=== PATIENT | female | born 1980 | race Caucasian/White ===

== ENCOUNTER 2020-11-05 23:27 | Inpatient (IN) | payer OTHER ==
[~2020-11-05] VITALS: Ht 167.6 cm; Wt 70.2 kg
[~2020-11-05 23:27] MED LIST: ALBU3IS INH; ALBU4; ALBU90OI61 INH; AMOX500 PO; AZIT500 PO; Accuneb1.25 MG/3 INH; CETI5 PO; DELTASONE20 MG PO; DULERA 100 MCG/13 GM INH; DULERA 200 MCG/13 GM INH; GUAI600T33 PO; Keflex500 MG PO; LEVO750 PO; METPRE4DP PO; MUCOSA DM TABL1 EACH PO; PRED20 PO; PROM25 PO; Percocet 5-3251 EACH PO; Ventolin Soln3 ML; Zithromax250 MG PO; Zofran Odt4 MG SL
[2020-11-06 00:14] LABS: BASOPHILS ABSOLUTE AUTO 0.06 K/mm3 (0.00-0.23); BASOPHILS PERCENT AUTO 1 % (0-2); EOSINOPHILS ABSOLUTE AUTO 1.19 K/mm3 (0.00-0.68); EOSINOPHILS PERCENT AUTO 11 % (0-6); Hematocrit 39.4 % (33.0-51.0); Hemoglobin 13.4 g/dL (11.5-16.0); IMMATURE GRAN ABSOLUTE AUTO 0.03 K/mm3 (0.00-0.10); IMMATURE GRAN PERCENT AUTO 0 % (0-1); LYMPHOCYTES PERCENT AUTO 24 % (21-46); MONOCYTES PERCENT AUTO 8 % (4-13); Mean Corpuscular HGB 30.9 pg (26.0-34.0); Mean Corpuscular Volume 91 fL (80-100); NEUTROPHILS ABSOLUTE AUTO 5.97 K/mm3 (1.96-9.15); NEUTROPHILS PERCENT AUTO 55 % (41-73); Platelet Count 229 K/mm3 (150-400); RDW Coefficient Variation 12.1 % (11.7-14.2); RDW Standard Deviation 40.7 fL (35.1-46.3); Red Blood Cell Count 4.33 M/mm3 (3.80-5.20); White Blood Cell Count 10.75 K/mm3 (4.00-11.30)
[2020-11-06 00:17] LABS: PCO2 Arterial 57.3 mmHg (35-45); PO2 Arterial 153 mmHg (80-100)
[2020-11-06 00:20] LABS: pH Blood Arterial 7.27 (7.35-7.45)
[2020-11-06 00:39] LABS: Alanine Aminotransfer (ALT/SGP 21 U/L (12-78); Albumin, Blood 3.5 g/dL (3.4-5.0); Albumin/Globulin Ratio 0.9 (0.8-1.8); Alk Phos 77 U/L (50-136); Anion Gap 6 mmol/L (6-16); Aspartate Aminotrans (AST/SGOT 14 U/L (12-37); Bilirubin, Total 0.6 mg/dL (0.1-1.0); Blood Urea Nitrogen 13 mg/dL (8-24); Bun/Creatinine Ratio 15.5 (12.0-20.0); CO2, Blood 27 mmol/L (21-32); Calcium, Blood 8.3 mg/dL (8.5-10.1); Chloride, Blood 108 mmol/L (98-108); Creatinine, Blood 0.84 mg/dL (0.40-1.00); Globulin, Blood 3.9 g/dL (2.2-4.0); Glomerular Filtration Rate >60 (60-); Glucose, Blood 108 mg/dL (70-99); Potassium, Blood 4.3 mmol/L (3.5-5.5); Sodium, Blood 141 mmol/L (136-145); Total Protein, Blood 7.4 g/dL (6.4-8.2); Troponin I <0.015 ng/mL (0.000-0.040)
[2020-11-06 01:07] LABS: Influenza A, PCR NEGATIVE (NEGATIVE); Influenza B, PCR NEGATIVE (NEGATIVE); Resp Syncytial Virus, PCR NEGATIVE (NEGATIVE); SARS-Cov-2 (COVID-19) PCR, MMC NEGATIVE (NEGATIVE)
[2020-11-06 02:59] LABS: Source, Urine Catheter
[2020-11-06 03:01] LABS: Bilirubin, Urine Neg (Neg); Blood, Urine 1+ (Neg); Glucose Qualitative, Urine Neg (Neg); Ketones, Urine Neg (Neg); Leukocyte Esterase, Urine 1+ (Neg); Nitrite, Urine Pos (Neg); Protein, Urine 2+ (Neg); Urobilinogen, Urine NORM (Normal)
[2020-11-06 03:07] LABS: Appearance, Urine Turbid (Clear); Color, Urine Yellow (P-Yellow)
[2020-11-06 03:18] LABS: Amorphous Heavy (0-Heavy); Bacteria Mod /hpf; Red Blood Cells, Urine Rare /hpf (0-2); Squamous Epithelial Cells Rare /hpf (Few)
--- NOTE | 2020-11-06 03:59 | NUR ---
ED TO ICU 6, 0245 Pt arrived to ICU 6 via strecter accomplined by ED RN. Intubated and sedated. Propofol upon arrival at 40 mcg/kg/min, see flow sheet. Titreated up to 50 mcg/kg/min due to patient agitation, pulling on restraints, and attempting to remove tube. Versed drip at 5 mg/hr. AC 20/350/5/35%, SPO2 > 90%. Pt opens eyes during oral care and pulling on restraints. Unable to follow directions at this time. Pt has dirt under fingernails and toenails. Temp willingham in place, draining to gravity with cloudy yellow urine. SWB. OG tube in place.
--- NOTE | 2020-11-06 05:51 | NUR ---
Shift Summary Pt intubated and sedated. Vent settings unchanged. Propofol @ 50 mcg/kg/min. Pt with increased agitation during turns/care. Pulling on restraints and thrashing in bed, Propofol titerated, see flow sheet. Versed 5 mg/hr, placed in clam shell. Pt unable to follow commands but opens eyes during care. Temp willingham in place, yellow cloudy urine. SWB in place. VSS. NSR. Will report to oncoming shift.
--- NOTE | 2020-11-06 08:32 | NUR ---
ASSUMED CARE BEDSIDE REPORT FROM ARAVIND DUNN. PT INTUBATED AND SEDATED. VENT SETTINGS AC 20/350/5/35%. PROPOFOL GTT 50 MCG/KG/MIN, VERSED 5 MG/HR. PT RESPONSES TO PAINFUL STIMULI. WITHDRAWS FROM PAIN. GRIMACES c CARE. LUNGS c WHEEZING THROUGHOUT. COUGH/GAG REFLEX. ABD ROUND, SOFT, NON TENDER. BT X 4. OGT TO LIS. BROWN EMESIS OUT. MAEW. RONQUILLO PATENT, DRAINING TO GRAVITY. CLOUDY. VSS. WILL CONTINUE TO MONITOR.
--- NOTE | 2020-11-06 09:11 | NUR ---
SPOKE c AUNT, KRISTIN, ON PHONE. [phone]. STATES PT HAS BEEN HOMELESS. . HAS NOT BEEN SEEKING MEDICAL CARE. KRISTIN WOULD LIKE TO PROVIDE PT A PLACE TO STAY. CALLED ID FOR RECORDS, PT HAS NOT BEEN SEEN IN THAT FACILITY SINCE 2019. KRISTIN STATES PT HAS ONE INHALER.
[2020-11-06 13:41] LABS: U Amphetamine Screen DETECTED; U Barbituate Screen Not Detected; U Benzodiazapine Screen Not Detected; U Cocaine Screen Not Detected; U Methadone Screen Not Detected; U Methamphetamine Screen DETECTED; U Opiates Screen DETECTED
[2020-11-06 13:42] LABS: U Buprenorphine Screen Not Detected; U Cannabinoids Screen Not Detected; U Oxycodone Screen Not Detected; U Phencyclidine Screen Not Detected; U Propoxyphene Screen Not Detected
--- NOTE | 2020-11-06 17:01 | NUR ---
SHIFT SUMMARY PT REMAINS INTUBATED AND SEDATED. VENT SETTINGS UNCHANGED, AC 20/350/5/35%. PROPOFOL GTT 50 MCG/KG/MIN, VERSED PLACED ON STANDBY, PRECEDEX GTT AT 0.4 MCG/KG/HR. PT INTERMITTANTLY SITS UP, PULLS ON RESTRAINTS, COUGHING. MEDICATED c FENTANYL PRN. DOES NOT FOLLOW COMMANDS. LUNGS c EXPIRATORY WHEEZES THROUGHOUT. SCANT THIN CLEAR SECRETIONS THROUGH ETT. ABD ROUND, SOFT, NON TENDER. BT X 4. OGT TO LIS. RONQUILLO PATENT, DRAINING COURTNEY, CLOUDY URINE TO GRAVITY. VSS. WILL CONTINUE TO MONITOR UNTIL REPORT TO ONCOMING NURSE.
--- NOTE | 2020-11-06 21:00 | NUR ---
Care Assumed 1900 Pt intubated and sedated. Propofol GTT 50 mcg/kg/min and Precedex 0.7 mcg/kg/hr. Vent settings AC 20/350/5/35%, spo2 > 90%. Pt pulling at restraints during turns and oral care. Not following commands and squeezing eyes shut when checking pupil reflex. VSS. NSR. Faria in place draining to gravity. SWB in place.
--- NOTE | 2020-11-06 23:20 | NUR ---
Update: Increased agitation Pt with increased agitation, pulling on restraints, hand removed from restraints and attempted to grab at tube. Five staff members required to hold patients arms and legs to prevent her from self extubating. Thrashing in bed. Dr. Gudino called to update on pt status and recieved new orders to help with agitation, see emar. Propofol and Precedex titerated, see flow sheet. Versed drip restarted at 5 mg/hr. Pt with decreased agitation after. Pt easily becomes agitated during turns/oral care. Unable to redirect verbally, not following commands, opens eyes but does not track. VSS. NSR. Vent settings changed to PS 5/5, 35%, SPO2 > 90%. Pt tolerating well. Orders recieved from Dr. Gudino to change settings for pt comfort.
[2020-11-07 03:39] LABS: BASOPHILS ABSOLUTE AUTO 0.01 K/mm3 (0.00-0.23); BASOPHILS PERCENT AUTO 0 % (0-2); EOSINOPHILS ABSOLUTE AUTO 0.01 K/mm3 (0.00-0.68); EOSINOPHILS PERCENT AUTO 0 % (0-6); Hematocrit 37.6 % (33.0-51.0); Hemoglobin 12.5 g/dL (11.5-16.0); IMMATURE GRAN ABSOLUTE AUTO 0.04 K/mm3 (0.00-0.10); IMMATURE GRAN PERCENT AUTO 0 % (0-1); LYMPHOCYTES ABSOLUTE AUTO 0.68 K/mm3 (0.84-5.20); LYMPHOCYTES PERCENT AUTO 6 % (21-46); MONOCYTES ABSOLUTE AUTO 0.54 K/mm3 (0.16-1.47); MONOCYTES PERCENT AUTO 5 % (4-13); Mean Corpuscular HGB 30.3 pg (26.0-34.0); Mean Corpuscular HGB Conc 33.2 g/dL (31.5-36.5); Mean Corpuscular Volume 91 fL (80-100); Mean Platelet Volume 10.6 fL (9.1-12.4); NEUTROPHILS ABSOLUTE AUTO 10.38 K/mm3 (1.96-9.15); NEUTROPHILS PERCENT AUTO 89 % (41-73); Platelet Count 230 K/mm3 (150-400); RDW Coefficient Variation 11.9 % (11.7-14.2); RDW Standard Deviation 40.1 fL (35.1-46.3); Red Blood Cell Count 4.12 M/mm3 (3.80-5.20); White Blood Cell Count 11.66 K/mm3 (4.00-11.30)
[2020-11-07 03:59] LABS: Albumin, Blood 3.4 g/dL (3.4-5.0); Anion Gap 10 mmol/L (6-16); Blood Urea Nitrogen 16 mg/dL (8-24); Bun/Creatinine Ratio 25.9 (12.0-20.0); CO2, Blood 23 mmol/L (21-32); Calcium, Blood 9.2 mg/dL (8.5-10.1); Chloride, Blood 107 mmol/L (98-108); Creatinine, Blood 0.62 mg/dL (0.40-1.00); Glomerular Filtration Rate >60 (60-); Glucose, Blood 149 mg/dL (70-99); Phosphorus, Blood 4.2 mg/dL (2.5-4.9); Potassium, Blood 4.4 mmol/L (3.5-5.5); Sodium, Blood 140 mmol/L (136-145)
--- NOTE | 2020-11-07 05:45 | NUR ---
Shift Summary Pt intubated and sedated. Vent settings of PS 5, PEEP 5, 35%. Propofol GTT 35 MGCG/KG/MIN, Precedex 0.6 mcg/kg/hr, Versed 5 mg/hr, and PRN fentanyl 50 mcg as needed for agitation. Pt with another episode of increased agitation (0400), pulling at restraints and attempting to reach ETT tube, treated with Fentanyl with good effect. Pt opens eyes during periods of agitation but does not follow commands. Faria in place, draining yellow clear urine. SWB in place. NSR. Will report to oncoming shift.
--- NOTE | 2020-11-07 08:15 | NUR ---
ASSUMED CARE BEDSIDE REPORT FROM ARAVIND RN. PT INTUBATED AND SEDATED. VENT SETTINGS PC 10/5/35%. PROPOFOL GTT 35 MCG/KG/MIN, VERSED 5 MG/HR, PRECEDEX 0.5 MCG/KG/HR. PT EASILY AGITATED TO NOXIOUS STIMULI. SITS UP IN BED, PULLS ON RESTRAINTS. MEDICATED c FENTANYL PRN. COUGH/GAG/SWALLOW REFLEX PRESENT. SMALL AMOUNT OF THICK YELLOW SECRETIONS THROUGH ETT. INSPIRATORY AND EXPIRATORY WHEEZES THROUGHOUT, IMPROVED SINCE YESTERDAY DAY SHIFT. ABD ROUND, SOFT, NON TENDER. BT X 4. OGT TO LIS. BROWN EMESIS OUT. RONQUILLO PATENT, DRAINING CLEAR YELLOW URINE TO GRAVITY. PIV X3, PATENT. VSS. WILL CONTNIUE TO MONITOR.
--- NOTE | 2020-11-07 09:01 | NUR ---
DR AVERY ROUNDS PLAN TO STAY INTUBATED THIS SHIFT. NO SEDATION VACATIONS D/T PT AGITATION AND RISK FOR SELF EXTUBATION.
--- NOTE | 2020-11-07 17:23 | NUR ---
SHIFT SUMMARY PT REMAINS INTUBATED AND SEDATED. VENT SETTINGS SPONT 10/5 35%. TIDAL VOLUMES 400'S. PROPOFOL GTT AT 35 MCG/KG/MIN, PRECEDEX 1.0 MCG/KG/HR, VERSED 5 MG/HR. PT INTERMITTANTLY SITS UP, COUGHS/GAGS ON TUBE, PULLS ON RESTRAINTS. FENTANYL PRN c RELIEF. LUNGS INCREASINGLY COARSE THROUGOUT SHIFT. INCREASED THICK YELLOW SECRETIONS THROUGH ETT. TUBE FEEDS STARTED THIS SHIFT, VHP AT 25 ML/HR c 30 ML FLUSH q 4HR. GOAL 50 ML/HR. NO RESIDUALS THIS AFTERNOON. RONQUILLO PATENT, DRAINING CLEAR YELLOW URINE TO GRAVITY. 400 ML OUT THIS SHIFT. VSS. WILL CONTINUE TO MONITOR UNTIL REPORT TO ONCOMING NURSE.
--- NOTE | 2020-11-07 21:01 | NUR ---
Care Assumed 1900 Pt intubated and sedated. Precedex GTT 1.0 mcg/kg/hr and Propofol 35 mcg/kg/min when care assumed. Titerated Precedex to 1.1 mcg/kg/hr and Propofol 40 mcg/kg/min due to patient attempting to situp in bed and trying to pull out ETT tube, see flow sheet. Pt thrashing in bed and required four staff members to keep her from grabbing at ETT. Treated with PRN Fentanyl as well with good effect. Pt not following commands and not opening eyes to sound. Vent setting PS 10/5, 35%, SPO2 > 90%. VSS. NSR. VH tube feed @ 25 ml/hr, goal of 50 ml/hr. Resiudal of 10. Temp willingham in place, draining to gravity. VSS. NSR.
--- NOTE | 2020-11-07 23:40 | NUR ---
UPDATE PT with increased agitation, pulling at restraints/attempting to situp in bed while RT attempting to provide oral care. Treated with PRN Fentanyl with good effect. Vent settings unchanged. Pt not following commands and not opening eyes to sound. Tube feed increased to 35 ml/hr, goal of 50 ml/hr. SWB in place.
--- NOTE | 2020-11-08 01:06 | NUR ---
Episode of agitation Pts propofol titered to 45 mcg/kg/min and Precedex 1.1 mcg/kg/hr due to pt having another episode of agitation. Pt coughing and not tolerating vent, SPO2 decreased to 80%. ETT suctioning provided with thick secretion's. Three nurses required to help hold pt to prevent from self extubating. Pt slowly decreased in agitation. SWB in place. VSS. SPO2 > 90%. NSR. Pt not following commands.
[2020-11-08 03:59] LABS: BASOPHILS ABSOLUTE AUTO 0.02 K/mm3 (0.00-0.23); BASOPHILS PERCENT AUTO 0 % (0-2); EOSINOPHILS PERCENT AUTO 0 % (0-6); Hematocrit 36.3 % (33.0-51.0); IMMATURE GRAN ABSOLUTE AUTO 0.06 K/mm3 (0.00-0.10); IMMATURE GRAN PERCENT AUTO 0 % (0-1); LYMPHOCYTES ABSOLUTE AUTO 0.64 K/mm3 (0.84-5.20); LYMPHOCYTES PERCENT AUTO 4 % (21-46); MONOCYTES PERCENT AUTO 4 % (4-13); Mean Corpuscular HGB 30.8 pg (26.0-34.0); Mean Corpuscular HGB Conc 33.1 g/dL (31.5-36.5); Mean Corpuscular Volume 93 fL (80-100); Mean Platelet Volume 10.6 fL (9.1-12.4); NEUTROPHILS ABSOLUTE AUTO 13.84 K/mm3 (1.96-9.15); NEUTROPHILS PERCENT AUTO 91 % (41-73); Platelet Count 221 K/mm3 (150-400); RDW Coefficient Variation 12.2 % (11.7-14.2); RDW Standard Deviation 41.6 fL (35.1-46.3); White Blood Cell Count 15.16 K/mm3 (4.00-11.30)
[2020-11-08 04:17] LABS: Albumin, Blood 3.2 g/dL (3.4-5.0); Anion Gap 6 mmol/L (6-16); Blood Urea Nitrogen 22 mg/dL (8-24); Bun/Creatinine Ratio 35.9 (12.0-20.0); CO2, Blood 29 mmol/L (21-32); Calcium, Blood 8.7 mg/dL (8.5-10.1); Chloride, Blood 106 mmol/L (98-108); Creatinine, Blood 0.61 mg/dL (0.40-1.00); Glomerular Filtration Rate >60 (60-); Glucose, Blood 145 mg/dL (70-99); Phosphorus, Blood 3.5 mg/dL (2.5-4.9); Potassium, Blood 4.8 mmol/L (3.5-5.5); Sodium, Blood 141 mmol/L (136-145)
--- NOTE | 2020-11-08 06:06 | NUR ---
Shift Summary Pt intubated and sedated. Vent settings unchanged. Propofol GTT 50 mcg/kg/min, Precedex 1.1 mcg/kg/hr, and Versed 5 mg/hr. Pt not opening eyes or following commands. Treated with PRN Fentanyl for increased agitation as needed with good effect. Pt requries mutiple people to assit during periods of agitation due to pulling on restraints, attempting to situp in bed, and attempting to pull on ETT. SWB in place. Faria in place draining to gravity, dark clear yellow urine. VH TF via OG tube at 35 ml/hr, goal of 50 ml/hr. VSS. NSR. SCD's in place. Will report to oncoming shift.
--- NOTE | 2020-11-08 08:05 | NUR ---
INITIAL ASSESSMENT PATIENT INTUBATED AND SEDATED. PATIENT RESPONDING TO PAINFUL STIMULI, REPOSITIONING, ORAL CARE. PATIENT HAS TEMP OF 99.1 DEGREES FAHRENHEIT. NO SIGNS OF PAIN NOTED. PATIENT ON SPONTANEOUS VENT SETTINGS OF PS 10, PEEP 5 AND 35% FIO2. LUNGS COARSE THROUGHOUT. SMALL AMOUNT OF THICK, PALE YELLOW SPUTUM BEING SUCTIONED FROM ETT. PATIENT IN SR, HR 70S TO 80S. SBP LOW 100S TO 1-TEENS. HYPOACTIVE BS NOTED. DATE OF LAST BM UNKNOWN. VHP TUBE FEED INCREASED TO GOAL RATE OF 50 MLS PER HOUR WITH 30 ML WATER FLUSH Q4H. RESIDUAL OF 5 MLS OBTAINED AND REINSTILLED. RONQUILLO DRAINING YELLOW COLORED URINE. SCARS NOTED TO BLES. SMALL SCATTERED SCABS NOTED SCATTERED T/O. BALD SPOTS NOTED ON HEAD. PROPOFOL INFUSING AT 50 MCG/ KG/ MINUTE, PRECEDEX AT 1.1 MCG/ KG/ HOUR, VERSED AT 5 MG/ HOUR, NS TKO. BED LOW. WILL CONTINUE TO MONITOR PATIENT FREQUENTLY THROUGHOUT SHIFT.
--- NOTE | 2020-11-08 12:00 | NUR ---
PATIENT HAS TEMP OF 99.6 DEGREES FAHRENHEIT. BLOOD SUGAR OF 140. PATIENT FOLLOWING SOME SIMPLE COMMANDS OCCASIONALLY. PATIENT REMAINS INTUBATED AND SEDATED. HR IN THE 70S. SBP 1-TEENS TO 120S. PS 10/5, 45% FIO2. PROPOFOL AT 45 MCG/ KG/ MINUTE. VERSED DC'D. NO SIGNS OF PAIN NOTED AT THIS TIME.
--- NOTE | 2020-11-08 14:30 | NUR ---
PATIENT'S AUNT, KRISTIN, HERE TO SEE PATIENT. AUNT TOOK PATIENT'S BELONGINGS HOME WITH HER.
--- NOTE | 2020-11-08 16:00 | NUR ---
PATIENT HAS TEMP OF 99.8 DEGREES FAHRENHEIT. HR 70S TO 90S. SBP IN THE 1-TEENS. NO ACUTE CHANGES TO NOTE ON AT THIS TIME.
--- NOTE | 2020-11-08 19:00 | NUR ---
SHIFT SUMMARY PATIENT REMAINED INTUBATED AND SEDATED. PATIENT MOSTLY RESPONDED TO NOXIOUS STIMULI BUT DID OCCASIONALLY RESPOND TO SIMPLE COMMANDS. PATIENT GIVEN PRN FENTANYL FOR SIGNS OF PAIN/ AGITATION. PATIENT HAD TMAX OF 100.0 DEGREES FAHRENHEIT. PATIENT REMAINED ON PRESSURE SUPPORT. PS 10/5, 45% FIO2. LUNGS REMAINED COARSE. PATIENT REMAINED IN SR, HR 70S TO 90S. SBP LOW 100S TO 130S. NO BM THIS SHIFT. TF INCREASED TO GOAL RATE THIS SHIFT. RONQUILLO DRAINED 1200 MLS OF URINE. NO CHANGES IN SKIN. PATIENT REPOSITIONED Q2H. VERSED DC'D THIS SHIFT. PROPOFOL AND PRECEDEX REMAIN INFUSING FOR SEDATION. SPUTUM CULTURE SENT TO LAB THIS SHIFT. PATIENT APPEARS COMFORTABLE AT THIS TIME. REPORT HAS BEEN GIVEN TO ASSUMING CNC LASER OPERATOR NURSE.
--- NOTE | 2020-11-08 19:15 | NUR ---
ASSUMED CARE OF PT, BEDSIDE REPORT RECEIVED. GTTS VERIFIED WITH OFFGOING RN, VENT SETTINGS AND VITAL SIGNS REVIEWED WITH OFFGOING RN. PRECEDEX AT 0.9 MCG/KG/HR, PROPOFOL AT 50 MCG/KG/MIN, ETT 7.5 25 CM AT TEETH, VENT SETTINGS PRESSURE SUPPORT 10/5 FIO2 45%, SATS MID 90S, RATE 19/MIN PER VENT. PT DOES PULL AWAY FROM NOXIOUS STIMULI OTHERWISE NONRESPONSIVE AT THIS TIME.
--- NOTE | 2020-11-08 20:30 | NUR ---
AGITATION PT SITTING UP AWAY FROM BED, FENTANYL 100 MCG IV ADMINISTERED, 8 MINUTES AFTER FENTANYL ADMINISTERED PT IS NOTED TO RAPIDLY SIT UP AWAY FROM BED, PULLING AGAINST BILAT WRIST RESTRAINTS, KICKING FEET AT RN AT BEDSIDE, RAPIDLY SHAKING HEAD SIDE TO SIDE. ATIVAN 2 MG IV ADMINISTERED AND PT IS NOTED TO BEGIN TO CALM 2 MINUTES AFTER ADMINISTRATION, PRECEDEX GTT INCREASED TO 1.1 MCG/KG/HR, INCREASED VISUALIZATION OF PT AT THIS TIME.
[2020-11-09 05:00] LABS: PCO2 Arterial 43.2 mmHg (35-45); PO2 Arterial 58.1 mmHg (80-100); pH Blood Arterial 7.44 (7.35-7.45)
[2020-11-09 05:04] LABS: BASOPHILS ABSOLUTE AUTO 0.01 K/mm3 (0.00-0.23); BASOPHILS PERCENT AUTO 0 % (0-2); EOSINOPHILS PERCENT AUTO 0 % (0-6); Hematocrit 36.9 % (33.0-51.0); IMMATURE GRAN ABSOLUTE AUTO 0.06 K/mm3 (0.00-0.10); IMMATURE GRAN PERCENT AUTO 1 % (0-1); LYMPHOCYTES ABSOLUTE AUTO 0.76 K/mm3 (0.84-5.20); LYMPHOCYTES PERCENT AUTO 11 % (21-46); MONOCYTES ABSOLUTE AUTO 0.45 K/mm3 (0.16-1.47); MONOCYTES PERCENT AUTO 6 % (4-13); Mean Corpuscular HGB 30.7 pg (26.0-34.0); Mean Corpuscular HGB Conc 32.5 g/dL (31.5-36.5); Mean Corpuscular Volume 94 fL (80-100); Mean Platelet Volume 10.5 fL (9.1-12.4); NEUTROPHILS ABSOLUTE AUTO 5.96 K/mm3 (1.96-9.15); NEUTROPHILS PERCENT AUTO 82 % (41-73); Platelet Count 184 K/mm3 (150-400); RDW Coefficient Variation 12.5 % (11.7-14.2); RDW Standard Deviation 43.1 fL (35.1-46.3); Red Blood Cell Count 3.91 M/mm3 (3.80-5.20); White Blood Cell Count 7.24 K/mm3 (4.00-11.30)
[2020-11-09 05:27] LABS: Albumin, Blood 3.2 g/dL (3.4-5.0); Anion Gap 6 mmol/L (6-16); Blood Urea Nitrogen 20 mg/dL (8-24); CO2, Blood 29 mmol/L (21-32); Calcium, Blood 8.8 mg/dL (8.5-10.1); Chloride, Blood 108 mmol/L (98-108); Glomerular Filtration Rate >60 (60-); Glucose, Blood 128 mg/dL (70-99); Magnesium, Blood 2.3 mg/dL (1.6-2.4); Phosphorus, Blood 2.8 mg/dL (2.5-4.9); Potassium, Blood 4.3 mmol/L (3.5-5.5); Sodium, Blood 143 mmol/L (136-145)
--- NOTE | 2020-11-09 06:29 | NUR ---
PT HAS REMAINED ON PRESSURE SUPPORT THROUGHOUT NOC, PRESSURES DECREASED TO 7/5 BY RT THIS AM AND FIO2 INCREASED TO 60% FOLLOWING AM ABG, LUNGS HAVE REMAINED COARSE THROUGHOUT NOC, PT DID REQUIRE INTERMITTENT DOSES OF ATIVAN AND FENTANYL FOR SITTING UP AWAY FROM BED, THRASHING HEAD SIDE TO SIDE, AND KICKING FEET IN THE AIR IF SHE WERE PEDALING A BICYCLE. FOLLOWING MOST RECENT DOSE OF FENTANYL PT RESPIRATIONS WERE NOTED TO DECREASE TO 12/MIN AND WITH TIDAL VOLUMES REMAINING NEAR 400, SATS WERE NOTED TO DECREASE TO UPPER 80S, FIO2 INCREASED AT THAT TIME AND PROPOFOL DECREASED WITH GOOD IMPROVEMENT IN SATS AND RESPIRATIONS. OTHERWISE NO ACUTE CHANGES THIS SHIFT.
--- NOTE | 2020-11-09 08:05 | NUR ---
INITIAL ASSESSMENT PATIENT INTUBATED AND ON SEDATION. PATIENT RESPONDS TO NOXIOUS STIMULI. PATIENT ASKED IF SHE COULD SQUEEZE NURSE HANDS AND SHE SHOOK HER HEAD NO. PATIENT AGITATED AT TIMES. PRN FENTANYL BEING USED FOR SEDATION ADJUNCT. PATIENT AFEBRILE. PATIENT ON SPONTANEOUS PS 7/5, 60% FIO2. LUNGS COARSE AND WHEEZY. MODERATE AMOUNT OF THICK, YELLOW SPUTUM BEING SUCTIONED FROM ETT. PATIENT IN SR, HR 60S TO 80S. SBP LOW 100S TO 120S. SCDS IN PLACE. HYPOACTIVE BS NOTED. DATE OF LAST BM UNKNOWN. TF INFUSING AT GOAL RATE. RESIDUAL OF 5 MLS OBTAINED AND REINSTILLED. RONQUILLO DRAINING YELLOW COLORED URINE. SCARS TO BLES. SCATTERED SCABS NOTED. BALD PATCHES ON HEAD. PROPOFOL INFUSING AT 45 MCG/ KG/ MINUTE, PRECEDEX AT 1.1 MCG/ KG/ HOUR, NS TKO. BED LOW. WILL CONTINUE TO MONITOR PATIENT FREQUENTLY THROUGHOUT SHIFT.
--- NOTE | 2020-11-09 09:01 | NUR ---
DR. MALDONADO INFORMED OF MRSA IN SPUTUM.
--- NOTE | 2020-11-09 12:00 | NUR ---
TEMP OF 99.1 DEGREES FAHRENHEIT. HR IN THE 60S. SBP 1-TEENS TO 120S. PATIENT ON 45% FIO2. NO OTHER ACUTE CHANGES TO NOTE ON AT THIS TIME. WILL CONTINUE TO MONITOR.
--- NOTE | 2020-11-09 16:00 | NUR ---
PATIENT HAS TEMP OF 99.1 DEGREES FAHRENHEIT. HR 70S TO 80S. SBP LOW 100S TO 1-TEENS. FIO2 AT 40%.
--- NOTE | 2020-11-09 18:44 | NUR ---
SHIFT SUMMARY PATIENT REMAINED INTUBATED AND ON SEDATION. PATIENT REMAINS RESPONDING TO NOXIOUS STIMULI AND AT TIMES SOME SIMPLE COMMANDS. PATIENT AGITATED/ ANXIOUS AT TIMES. PATIENT HAD A TMAX OF 99.3 DEGREES FAHRENHEIT. PATIENT GIVEN PRN FENTANYL THROUGHOUT SHIFT SEDATION ADJUNCT/ PAIN CONTROL. PATIENT REMAINED ON SPONTANEOUS PRESSURE SUPPORT. 10/5 DECREASED TO 7/5. FIO2 DECREASED FROM 60% TO 40%. LUNGS REMAINED COARSE AND WHEEZY. PATIENT CONTINUED TO HAVE MODERATE AMOUNT OF THICK, [place] SECRETIONS FROM ETT. PATIENT REMAINED IN SR, HR 60S TO 80S. SBP LOW 100S TO 120S. SCDS REMAIN IN PLACE. NO BM THIS SHIFT. PATIENT GIVEN PRUNE JUICE THROUGH OG. TF REMAINS INFUSING AT GOAL RATE. RONQUILLO DRAINED 1575 MLS OF YELLOW COLORED URINE. NO CHANGE TO SKIN. PATIENT REPOSITIONED THROUGHOUT SHIFT. PROPOFOL INFUSING AT 45 MCG/ KG/ MINUTE, PRECEDEX AT 1.1 MCG/ KG/ HOUR, NS TKO. PATIENT RECEIVED VANCO THIS SHIFT. PATIENT APPEARS COMFORTABLE AT THIS TIME. BED LOW. WILL BE GIVING REPORT TO ONCOMING ASSOCIATE PROFESSOR OF ART NURSE SHORTLY.
--- NOTE | 2020-11-09 19:20 | NUR ---
ASSUMED CARE OF PT, BEDSIDE REPORT RECEIVED. SHE REMAINS SEDATED AND INTUBATED ETT 7.5 CM NOW NOTED AT 27 CM AT THE TEETH, VERIFIED PLACEMENT AGAINST DR MALDONADO RT COMMUNICATION THIS AM. VENT SETTINGS NOTED PRESSURE SUPPORT 7/5 FIO2 40%, CURRENT RESP RATE 19 PER VENT, TIDAL VOLUMES NEAR 400, LUNGS ARE NOW CLEAR THROUGHOUT WITH DIM BASES BILAT, SATS MAINTAINING MID TO UPPER 90S AT THIS TIME. AGITATION IS NOTED WITH NOXIOUS STIMULI TO THE POINT THAT PT KICKS ORAL CARE SUPPLIES OFF OF BEDSIDE TABLE AND TABLE AWAY FROM THE BED WHILE SHAKING HEAD SIDE TO SIDE RAPIDLY, SHE DOES NOT FOLLOW COMMANDS AT THIS TIME BUT DOES STOP KICKING WHEN IT IS EXPLAINED TO HER THAT SHE IS STILL IN THE ICU, STILL ON A VENTILATOR, AND STILL SAFE, PURPOSE OF ORAL CARE IS EXPLAINED TO PT THROUGHOUT PROCEDURE. PT RETURNS TO RESTING QUIETLY WHEN NOXIOUS STIMULI IS REMOVED. HRR, SINUS ON MONITOR, RATE 60S AT REST, NOTED TO INCREASE TO 70-80S WITH AGITATION, PRESSURES MAINTAINING STABLE THROUGHOUT DAY PER OFFGOING RN, SKIN REMAINS PWD WITH BRISK CAP REFILL AND NO EDEMA NOTED. HYPOACTIVE BOWEL TONES CONTINUE, VITAL HIGH PROTEIN CONTINUES TO OG TUBE AT GOAL RATE OF 50 ML/HR, WILL ASSESS RESIDUAL AT TIME OF HS MEDICATION ADMINISTRATION, ABD IS SOFT, NO GRIMACING/AGITATION WITH PALPATION. TEMP PROBE RONQUILLO REMAINS IN PLACE DRAINING CLEAR YELLOW URINE TO GRAVITY AT THIS TIME.
--- NOTE | 2020-11-09 20:15 | NUR ---
AGITATION THIS RN AT BEDSIDE FOR MEDICATION ADMINISTRATION. PT KICKING FEET UP IN AIR. FENTANYL ADMINISTERED.
--- NOTE | 2020-11-09 20:35 | NUR ---
APNEA BEDBATH IN PROGRESS, PT RESPIRATIONS LAST VISUALIZED AT 14/MIN PER VENT HOWEVER [facility] ALARM IS ACTIVATED OF THIS TIME, RT CALLED TO BEDSIDE, VENT SETTINGS CHANGED TO AC 20, TV 350, FIO2 45%, PEEP 5, PLAN TO ATTEMPT RETURN TO PRESSURE SUPPORT AT 2300 VENT CHECK PER RT.
[2020-11-10 04:16] LABS: BASOPHILS ABSOLUTE AUTO 0.01 K/mm3 (0.00-0.23); BASOPHILS PERCENT AUTO 0 % (0-2); EOSINOPHILS PERCENT AUTO 0 % (0-6); Hematocrit 37.4 % (33.0-51.0); Hemoglobin 12.1 g/dL (11.5-16.0); IMMATURE GRAN ABSOLUTE AUTO 0.06 K/mm3 (0.00-0.10); IMMATURE GRAN PERCENT AUTO 1 % (0-1); LYMPHOCYTES ABSOLUTE AUTO 0.94 K/mm3 (0.84-5.20); LYMPHOCYTES PERCENT AUTO 12 % (21-46); MONOCYTES ABSOLUTE AUTO 0.72 K/mm3 (0.16-1.47); MONOCYTES PERCENT AUTO 9 % (4-13); Mean Corpuscular HGB 30.5 pg (26.0-34.0); Mean Corpuscular HGB Conc 32.4 g/dL (31.5-36.5); Mean Corpuscular Volume 94 fL (80-100); NEUTROPHILS PERCENT AUTO 77 % (41-73); Platelet Count 218 K/mm3 (150-400); RDW Coefficient Variation 12.2 % (11.7-14.2); RDW Standard Deviation 42.4 fL (35.1-46.3); Red Blood Cell Count 3.97 M/mm3 (3.80-5.20); White Blood Cell Count 7.63 K/mm3 (4.00-11.30)
[2020-11-10 04:38] LABS: Anion Gap 4 mmol/L (6-16); Blood Urea Nitrogen 17 mg/dL (8-24); Bun/Creatinine Ratio 34.1 (12.0-20.0); CO2, Blood 31 mmol/L (21-32); Calcium, Blood 9.1 mg/dL (8.5-10.1); Chloride, Blood 106 mmol/L (98-108); Glomerular Filtration Rate >60 (60-); Glucose, Blood 124 mg/dL (70-99); Magnesium, Blood 2.1 mg/dL (1.6-2.4); Phosphorus, Blood 3.4 mg/dL (2.5-4.9); Potassium, Blood 4.4 mmol/L (3.5-5.5); Sodium, Blood 141 mmol/L (136-145)
--- NOTE | 2020-11-10 06:25 | NUR ---
PT ANXIETY IS IMPROVED THIS SHIFT, SHE HAS BEEN REDIRECTABLE, ANSWERS YES/NO QUESTIONS, TOLERATES ORAL CARE. FENTANYL 100 MCG IV WAS ADMINISTERED X 1 EARLY THIS SHIFT FOR PT KICKING FEET IN THE AIR WHICH RESULTED VENTILATOR SETTINGS BEING RETURNED TO AC FROM PRESSURE SUPPORT FROM 2034 TO 2339, INTERMITTENT COARSE LUNG SOUNDS HAVE BEEN NOTED HOWEVER CLEAR WITH SUCTION, OXYGEN REQUIREMENTS HAVE DECREASED, FIO2 IS NOW 35% AND SATS ARE MAINTAINING MID TO UPPER 90S. CONTINUES IN SINUS RHYTHM, RATE REMAINS 60S AT REST AND INCREASES TO 70-90S WHEN AWAKE, PRESSURES MAINTAINING. CONTINUES WITHOUT BOWEL MOVEMENT, RESIDUALS MINIMAL THROUGHOUT SHIFT, DENIES NAUSEA, TOLERATING VITAL HIGH PROTEIN AT GOAL RATE OF 50 ML/HR. TEMP PROBE RONQUILLO REMAINS IN PLACE 2 LITERS OF CLEAR GREEN URINE OUTPUT THIS SHIFT.
--- NOTE | 2020-11-10 08:55 | NUR ---
ASSUMED CARE BEDSIDE REPORT FROM RENATA RN. PT INTUBATED AND SEDATED. VENT SETTINGS SPONT 7/5 35%. TIDAL VOLUMES 400'S, RATE 16-18. LUNGS DIMINISHED IN BASES, CLEAR IN UPPER LOBES. MODERATE, THICK YELLOW SECRETIONS THROUGH ETT. PROPOFOL GTT 50 MCG/KG/MIN, PRECEDEX 1.1 MCG/KG/HR. PT OPENS EYES TO VERBAL STIMULI, AGITATED c NOXIOUS STIMULI. DOES NOT FOLLOW COMMANDS. GAG/COUGH/SWALLOW REFLEX PRESENT. ABD ROUND, SOFT, NON TENDER. BT X 4. TUBE FEEDS VIA OGT AT GOAL OF 50 ML/HR c 30 ML FLUSH q 4HR. 20 ML RESIDUALS THIS AM. RONQUILLO PATENT, DRAINING CLEAR YELLOW URINE TO GRAVITY. VSS. WILL CONTINUE TO MONITOR.
[2020-11-10 12:50] LABS: Vancomycin, Trough 8.9 ug/mL (5.0-10.0)
--- NOTE | 2020-11-10 14:45 | NUR ---
EXTUBATION PROPOFOL AND PRECEDEX PLACED ON STANDBY. PT OPENS EYES TO COMMAND. NODS YES/NO. COUGH/GAG/SWALLOW REFLEX PRESENT. THICK YELLOW SECRETIONS. DR MALDONADO ASSESSED, PLAN FOR EXTUBATION. RT AT BEDSIDE. EXTUBATED AT 1357, RESTRAINTS REMOVED. PLACED ON 4L VIA NC. PT ABLE TO MANAGE SECRETIONS. SUCTIONING MOUTH siomara OCLE. VSS.
--- NOTE | 2020-11-10 17:42 | NUR ---
SHIFT SUMMARY PT EXTUBATED THIS SHIFT. CURRENTLY ON RA, LUNGS COARSE, WET COUGH. PT MANAGING SECRETIONS. PASSED BEDSIDE SWALLOW EVAL. PT VOMITED AFTER, MEDICATED c ZOFRAN. RONQUILLO REMOVED. VSS. WILL CONTINUE TO MONITOR UNTIL REPORT TO ONCOMING NURSE.
--- NOTE | 2020-11-10 21:12 | NUR ---
ASSUMED CARE AT 1900 PT IS ALERT/ORIENTED AND ABLE TO MAKE HER NEEDS KNOWN. PT STATES SHE IS VERY HUNGERY, JELLO GIVEN AND PT TOLERATED WELL, PT REQUESTED ANOTHER JELLO AFTERWARDS, WILL WAIT AND REEVALUATE IN AN HOUR FOR NAUSEA. SPO2 >90% ON RA; PT HAS STRONG, HACKING, PRODUCTIVE COUGH WITH LARGE AMOUNTS OF THICK SECREATIONS. AFIBRILE. HR 80-90. SBP 100-120. NS TKO INFUSING. SEE SHIFT ASSESSMENT FOR FULL ASSESSMENT.
[2020-11-11 05:13] LABS: BASOPHILS ABSOLUTE AUTO 0.04 K/mm3 (0.00-0.23); BASOPHILS PERCENT AUTO 0 % (0-2); EOSINOPHILS ABSOLUTE AUTO 0.01 K/mm3 (0.00-0.68); EOSINOPHILS PERCENT AUTO 0 % (0-6); Hematocrit 41.2 % (33.0-51.0); Hemoglobin 13.7 g/dL (11.5-16.0); IMMATURE GRAN ABSOLUTE AUTO 0.13 K/mm3 (0.00-0.10); IMMATURE GRAN PERCENT AUTO 1 % (0-1); LYMPHOCYTES ABSOLUTE AUTO 1.31 K/mm3 (0.84-5.20); LYMPHOCYTES PERCENT AUTO 14 % (21-46); MONOCYTES ABSOLUTE AUTO 0.79 K/mm3 (0.16-1.47); MONOCYTES PERCENT AUTO 9 % (4-13); Mean Corpuscular HGB 30.6 pg (26.0-34.0); Mean Corpuscular HGB Conc 33.3 g/dL (31.5-36.5); Mean Corpuscular Volume 92 fL (80-100); Mean Platelet Volume 10.6 fL (9.1-12.4); NEUTROPHILS ABSOLUTE AUTO 6.98 K/mm3 (1.96-9.15); NEUTROPHILS PERCENT AUTO 76 % (41-73); Platelet Count 226 K/mm3 (150-400); RDW Coefficient Variation 11.9 % (11.7-14.2); Red Blood Cell Count 4.48 M/mm3 (3.80-5.20); White Blood Cell Count 9.26 K/mm3 (4.00-11.30)
[2020-11-11 05:30] LABS: Anion Gap 6 mmol/L (6-16); Blood Urea Nitrogen 15 mg/dL (8-24); Bun/Creatinine Ratio 31.2 (12.0-20.0); CO2, Blood 31 mmol/L (21-32); Calcium, Blood 9.5 mg/dL (8.5-10.1); Chloride, Blood 100 mmol/L (98-108); Creatinine, Blood 0.48 mg/dL (0.40-1.00); Glomerular Filtration Rate >60 (60-); Glucose, Blood 106 mg/dL (70-99); Potassium, Blood 3.7 mmol/L (3.5-5.5); Sodium, Blood 137 mmol/L (136-145)
--- NOTE | 2020-11-11 06:07 | NUR ---
END OF SHIFT SUMMARY PT SLEPT ON AND OFF ALL NIGHT, PT ALERT/ORIENTED AND ABLE TO MAKE HER NEEDS KNOWN. PRN ATIVAN GIVEN ONCE FOR IRRITATION AND ANXIETY, PRN HELFUL. AFIBRILE. SPO2 >90% ON RA; PT CONT TO HAVE STRONG, PRODUCTIVE, HACKING COUGH. HR 80-110. SBP 100-120. PT ABLE TO TOLERATE ICE CHIPS AND JELLO WITH NO NAUSEA OR EMESIS. PT ABLE TO USE BEDSIDE COMMOD WITH STANDBY ASSIST. WILL REPORT TO AM RN WHEN AVAILABLE.
--- NOTE | 2020-11-11 08:00 | NUR ---
ASSUMED CARE BEDSIDE REPORT FROM KIARA DUNN. PT RESTING IN BED. WAKES c VERBAL STIMULI. A&OX 3, IRRITABLE AND IMPULSIVE. PT VOMITTED IN BED AND ON FLOOR. MEDICATED c ZOFRAN PRN. C/O GENERALIZED ABD PAIN. RESIDENT AT BEDSIDE. CIWA ORDERS, PT DENIES ETOH USE. LUNGS CLEAR. WET COUGH. PT MANAGING SECRETIONS. MAEW. VSS. WILL CONTINUE TO MONITOR.
--- NOTE | 2020-11-11 11:18 | NUR ---
REPORT GIVEN TO SABIHA DUNN. PT TRANSFERRED TO MEDICAL FLOOR. ALL BELONGINGS c PT.
[2020-11-11 12:55] LABS: Vancomycin, Trough 11.5 ug/mL (5.0-10.0)
--- NOTE | 2020-11-11 17:36 | NUR ---
DEPRESSION PT'S AUNT WANTED NURSE TO BE AWARE THAT PATIENT IS "EXTREMELY DEPRESSED" AND STRUGGLING WITH PTSD FROM THE . PATIENT ASSESSED FOR SI. PT DENIES INTENT TO HARM SELF AT THIS TIME. WILL CONTINUE TO MONITOR.
--- NOTE | 2020-11-11 17:48 | NUR ---
SHIFT SUMMARY PT AXO, PLEASANT AND COOPERATIVE WITH CARE THOUGH AFTER TRANSFER, PT SLEPT FOR A FEW HOURS. VSS. PT DENIES ETOH WITHDRAWL SYMPTOMS. IV'S PATENT AND SALINE LOCKED. PT'S AUNT IN ROOM AT THIS TIME, REQUESTED TO SPEAK WITH DR. HAINES. DR. HAINES IN ROOM SHORTLY AFTER TO UPDATE ON PATIENT AND TO ANSWER QUESTIONS. DENIES SOB, NV AND PAIN. BED IN LOW POSTION, CALL LIGHT WITHIN REACH.
--- NOTE | 2020-11-12 00:17 | NUR ---
11/11/20 PT RESTING COMFORTABLY IN BED; CHEERFUL; DENIES PAIN OR NAUSEA.
--- NOTE | 2020-11-12 03:46 | NUR ---
SHIFT SUMMARY: 39 Y/O OBESE FEMALE RESTED COMFORTABLY ALL SHIFT; DENIES PAIN OR NAUSEA; LUNG SOUNDS ARE DIMINISHED THROUGHOUT WITH NO COUGH; ALERT AND ORIENTED X 4; BED LOW POSITION WITH CALL LIGHT AT SIDE.
--- NOTE | 2020-11-12 04:33 | NUR ---
0425 PT ADMITTED TO ROOM 363 PER WHEELCHAIR FROM ER; REPORT RECEIVED FROM MONA COVINGTON VIA ER; ALERT AND ORIENTED X 4; PT HAS +3 EDEMA BLE.
[2020-11-12 05:34] LABS: BASOPHILS ABSOLUTE AUTO 0.04 K/mm3 (0.00-0.23); BASOPHILS PERCENT AUTO 0 % (0-2); EOSINOPHILS ABSOLUTE AUTO 0.01 K/mm3 (0.00-0.68); EOSINOPHILS PERCENT AUTO 0 % (0-6); Hemoglobin 14.7 g/dL (11.5-16.0); IMMATURE GRAN ABSOLUTE AUTO 0.16 K/mm3 (0.00-0.10); IMMATURE GRAN PERCENT AUTO 2 % (0-1); LYMPHOCYTES ABSOLUTE AUTO 1.11 K/mm3 (0.84-5.20); LYMPHOCYTES PERCENT AUTO 10 % (21-46); MONOCYTES ABSOLUTE AUTO 0.82 K/mm3 (0.16-1.47); MONOCYTES PERCENT AUTO 8 % (4-13); Mean Corpuscular HGB 30.2 pg (26.0-34.0); Mean Corpuscular HGB Conc 33.4 g/dL (31.5-36.5); Mean Corpuscular Volume 91 fL (80-100); Mean Platelet Volume 10.3 fL (9.1-12.4); NEUTROPHILS ABSOLUTE AUTO 8.53 K/mm3 (1.96-9.15); NEUTROPHILS PERCENT AUTO 80 % (41-73); Platelet Count 243 K/mm3 (150-400); RDW Coefficient Variation 11.8 % (11.7-14.2); RDW Standard Deviation 39.1 fL (35.1-46.3); Red Blood Cell Count 4.86 M/mm3 (3.80-5.20); White Blood Cell Count 10.67 K/mm3 (4.00-11.30)
[2020-11-12 05:54] LABS: Anion Gap 9 mmol/L (6-16); Blood Urea Nitrogen 16 mg/dL (8-24); Bun/Creatinine Ratio 31.7 (12.0-20.0); CO2, Blood 28 mmol/L (21-32); Calcium, Blood 9.2 mg/dL (8.5-10.1); Chloride, Blood 101 mmol/L (98-108); Creatinine, Blood 0.51 mg/dL (0.40-1.00); Glomerular Filtration Rate >60 (60-); Glucose, Blood 131 mg/dL (70-99); Potassium, Blood 3.9 mmol/L (3.5-5.5); Sodium, Blood 138 mmol/L (136-145)
[2020-11-12] MEDS ORDERED: ALBU2.5V5 INH (13:47)
[2020-11-12] MEDS ORDERED: VISBIOME 112.51 EACH PO (13:48)
[2020-11-12] MEDS ORDERED: ALBU90OI INH (13:49)
--- NOTE | 2020-11-12 15:15 | NUR ---
DISCHARGE SUMMARY PT AxOx4. DISCHARGING TODAY TO HOME WITH AUNT. PT HAD UNEVENTFUL MORNING. IV ABX GIVEN. APPETITE GOOD. INDEPENDENT IN THE ROOM. LIFE SUPPORT TECHNICIAN INVOLVED WITH DC. DC INSTRUCTIONS DISCUSSED WITH PATIENT, INCLUDING DC MEDICATIONS, FOLLOW UP APPOINTMENTS, PT EDUCATION AND RESOURCES FOR TX FOR SUBSTANCE ABUSE. PT VERBALIZES UNDERSTANDING. DENIES FURTHER QUESTIONS AT THIS TIME. PT'S AUNT HERE TO ASSIST TRANSFER OUT OF HOSPITAL. VITAL SIGNS REVIEWED. PT SAFELY ESCORTED OUT WITH BEHAVIORAL SPECIALIST.
== END 2020-11-12 15:12 | disposition home or self-care (01) | DRG 207 ==
LOC: ER 23:27 → ICUE 11-06 00:26 → ERHOLD 11-06 00:26 → ICUE 11-06 02:45 → MEDS 11-11 11:38 → ENPENDDIS 11-12 11:46 → MEDS 11-12 15:12
PROVIDERS: Emergency Medicine; Family Medicine; Internal Medicine Critical Care Medicine; Pharmacist; ADMIT Internal Medicine
PROC: 0BH17EZ Insertion of Endotracheal Airway into Trachea, Via Natural or Artificial Opening (ICD-10-PCS; principal; 2020-11-06)
PROC: 5A1955Z Respiratory Ventilation, Greater than 96 Consecutive Hours (ICD-10-PCS; 2020-11-06)
DX: J96.21 Acute and chronic respiratory failure with hypoxia (principal); G92 Toxic encephalopathy; N30.00 Acute cystitis without hematuria; J45.901 Unspecified asthma with (acute) exacerbation; F10.239 Alcohol dependence with withdrawal, unspecified; J96.22 Acute and chronic respiratory failure with hypercapnia; J98.4 Other disorders of lung; Z59.0 Homelessness; F17.210 Nicotine dependence, cigarettes, uncomplicated; F19.10 Other psychoactive substance abuse, uncomplicated; B95.62 Methicillin resistant Staphylococcus aureus infection as the cause of diseases classified elsewhere; T43.625A Adverse effect of amphetamines, initial encounter; F15.229 Other stimulant dependence with intoxication, unspecified
CPT/HCPCS: 0241U; 31500; 31720; 36415; 36600; 51702; 71045; 80048; 80053; 80069; 80202; 81001; 81025; 82330; 82803; 82947; 83735; 84100; 84484; 85025; 87070; 87077; 87086; 87147; 87186; 87205; 93005; 93010; 94002; 94003; 94640; 94644; 94645; 94760; 96361; 96374-59; 96375; 96376; 99285-25; A9270; J0330; J1200; J1650; J1956; J2060; J2250; J2405; J2550; J2704; J2920; J2930; J3010; J3370; J7030; J7050

== ENCOUNTER 2021-03-11 03:58 | Inpatient (IN) | payer OTHER ==
[~2021-03-11] VITALS: Ht 162.6 cm; Wt 72.6 kg
[~2021-03-11 03:58] MED LIST changes: +ALBU2.5V5 INH; +ALBU90OI INH; +VISBIOME 112.51 EACH PO
[2021-03-11 04:19] LABS: BASOPHILS ABSOLUTE AUTO 0.07 K/mm3 (0.00-0.23); BASOPHILS PERCENT AUTO 1 % (0-2); EOSINOPHILS ABSOLUTE AUTO 1.15 K/mm3 (0.00-0.68); EOSINOPHILS PERCENT AUTO 11 % (0-6); Hematocrit 41.9 % (33.0-51.0); Hemoglobin 13.9 g/dL (11.5-16.0); IMMATURE GRAN ABSOLUTE AUTO 0.03 K/mm3 (0.00-0.10); IMMATURE GRAN PERCENT AUTO 0 % (0-1); LYMPHOCYTES ABSOLUTE AUTO 2.24 K/mm3 (0.84-5.20); LYMPHOCYTES PERCENT AUTO 22 % (21-46); MONOCYTES ABSOLUTE AUTO 0.81 K/mm3 (0.16-1.47); MONOCYTES PERCENT AUTO 8 % (4-13); Mean Corpuscular HGB 30.5 pg (26.0-34.0); Mean Corpuscular HGB Conc 33.2 g/dL (31.5-36.5); Mean Corpuscular Volume 92 fL (80-100); NEUTROPHILS ABSOLUTE AUTO 6.13 K/mm3 (1.96-9.15); NEUTROPHILS PERCENT AUTO 59 % (41-73); Platelet Count 243 K/mm3 (150-400); RDW Coefficient Variation 12.5 % (11.7-14.2); RDW Standard Deviation 42.5 fL (35.1-46.3); Red Blood Cell Count 4.55 M/mm3 (3.80-5.20); White Blood Cell Count 10.43 K/mm3 (4.00-11.30)
[2021-03-11 04:23] LABS: Base Excess Venous 2.1 mmol/L; Bicarbonate Venous 24.4 mmol/L (24.0-30.0); PCO2 Venous 58.3 mmHg (38-42)
[2021-03-11 04:41] LABS: Alanine Aminotransfer (ALT/SGP 30 U/L (12-78); Albumin, Blood 3.7 g/dL (3.4-5.0); Albumin/Globulin Ratio 0.9 (0.8-1.8); Alk Phos 86 U/L (50-136); Anion Gap 5 mmol/L (6-16); Aspartate Aminotrans (AST/SGOT 22 U/L (12-37); Bilirubin, Total 0.4 mg/dL (0.1-1.0); Blood Urea Nitrogen 12 mg/dL (8-24); CO2, Blood 29 mmol/L (21-32); Calcium, Blood 8.7 mg/dL (8.5-10.1); Chloride, Blood 108 mmol/L (98-108); Creatinine, Blood 0.67 mg/dL (0.40-1.00); Globulin, Blood 4.1 g/dL (2.2-4.0); Glomerular Filtration Rate >60 (60-); Glucose, Blood 96 mg/dL (70-99); Potassium, Blood 3.5 mmol/L (3.5-5.5); Sodium, Blood 142 mmol/L (136-145); Total Protein, Blood 7.8 g/dL (6.4-8.2); Troponin I <0.015 ng/mL (0.000-0.040)
[2021-03-11 06:07] LABS: SARS-Cov-2 (COVID-19) PCR, MMC NEGATIVE (NEGATIVE)
--- NOTE | 2021-03-11 09:00 | NUR ---
Pt arrived to room ICU 13 from emergency deparment wearing BiPAP 12/8 and 30%. SpO2 90% or greater. RR 20. Respirations even and unlabored. Lungs coarse t/o, expiratory wheezes noted, diminshed in bases but air movement noted in all lung zhu. Productive cough with frothy white sputum. Pt awakens to verbal stimulus, cusses, and then falls back asleep shortly afterwards. SR per monitor, HR 85-95. BP stable. Bed in lowest position. Call light in reach. Pt denies need at this time.
--- NOTE | 2021-03-11 10:50 | NUR ---
Pt wakes up agitated, screaming, cursing, ripping off Bipap. Pt refusing to have Bipap mask replaced. Pt placed on 3L/min NC with SPO2 mid to upper 90's. RR low 20's. Pt requesting new nurse to care for her.
[2021-03-11 11:23] LABS: U Amphetamine Screen DETECTED; U Barbituate Screen Not Detected; U Benzodiazapine Screen DETECTED; U Buprenorphine Screen Not Detected; U Cannabinoids Screen Not Detected; U Cocaine Screen Not Detected; U Methadone Screen Not Detected; U Methamphetamine Screen DETECTED; U Opiates Screen Not Detected; U Oxycodone Screen Not Detected; U Phencyclidine Screen Not Detected; U Propoxyphene Screen Not Detected
--- NOTE | 2021-03-11 14:34 | NUR ---
PT AGITATED, RIPPING OFF MONITORING WIRES AND BP CUFF. PT CURSING, YELLING "HAND ME MY DISCHARGE PAPERS AND I'LL GET THE F OUT OF HERE". PT EDUCATED ON NEED TO REMAIN HOSPITALIZED DUE TO RESPIRATORY STATUS. MONITOR EQUIPMENT RE-APPLIED. PT CALMS DOWN AND APPEARS TO GO BACK TO SLEEP.
--- NOTE | 2021-03-11 18:46 | NUR ---
PT YELLING OUT IN ROOM. WHEN I ENTERED ROOM PT YELLING PROFANITIES AT STAFF. REQUESTING FOOD. EDUCATED PT THAT SHE WAS NPO D/T RESPIRATORY STATUS. PT CONTINUES TO YELL PROFANITIES, THRASHING IN BED. ATTEMPTED MULTIPLE TIMES TO REDIRECT AND EDUCATE PT. PT CONTINUES TO YELL. STATES THAT SHE IS NOT STAYING. INFORMED PT THAT SHE WOULD HAVE TO LEAVE AMA. PAPERWORK SIGNED. DR BHATIATRATE NOTIFIED. BELONGINGS GIVEN TO PT. SECURITY CALLED TO BEDSIDE.
--- NOTE | 2021-03-11 18:51 | NUR ---
AMA PT WAKES, EXTREMELY ANGRY, CURSING, RIPPING OFF MONITORING EQUIPMENT, STATING SHE IS GOING TO LEAVE AGAINST MEDICAL ADVICE. SECURITY CALLED AND INTO ROOM. ISTRATE CALLED AND STATES PT IS COMPETENT AND CAN LEAVE IF SHE WISHES. IV'S DISCONTINUED. PT OUT AMA AT THS TIME WITH ALL BELONGINGS.
== END 2021-03-11 18:55 | disposition left against medical advice (07) | DRG 871 ==
LOC: ER 03:58 → ICUW 06:10
PROVIDERS: Student in an Organized Health Care Education/Training Program; ADMIT Internal Medicine
PROC: 5A09357 Assistance with Respiratory Ventilation, Less than 24 Consecutive Hours, Continuous Positive Airway Pressure (ICD-10-PCS; principal; 2021-03-11)
DX: A41.9 Sepsis, unspecified organism (principal); J96.21 Acute and chronic respiratory failure with hypoxia; J12.9 Viral pneumonia, unspecified; J96.22 Acute and chronic respiratory failure with hypercapnia; J44.1 Chronic obstructive pulmonary disease with (acute) exacerbation; J44.0 Chronic obstructive pulmonary disease with (acute) lower respiratory infection; Z20.822 Contact with and (suspected) exposure to COVID-19; F17.210 Nicotine dependence, cigarettes, uncomplicated; F41.9 Anxiety disorder, unspecified; J98.4 Other disorders of lung; R65.20 Severe sepsis without septic shock
CPT/HCPCS: 36415; 71045; 80053; 82803; 83605; 84145; 84484; 85025; 87070; 87205; 93005; 93010; 94640; 94644; 94660; 96374; 96375; 99285-25; A9270; J0456; J0696; J1650; J2060; J2250; J2930; J7030; J7050; U0004

== ENCOUNTER 2021-09-04 20:42 | Emergency (ER) | payer OTHER ==
[~2021-09-04] VITALS: Ht 152.4 cm; Wt 63.5 kg
[~2021-09-04 20:42] MED LIST changes: +ALBU90OI6 INH; +Acetaminophen650 M1 PO; +BENMENLOZ MT; +BUDE.25 INH; +DOCU100 PO; +IPRAT-ALBUT 0.5-3 ML INH; +LORA.5 PO; +LORA10ER PO; +PROBIOTIC1 EA13 PO; +Prednisone10 MG PO; +SYMBICORT 160-4.6 GM INH
[2021-09-04 21:03] LABS: Hematocrit 43.8 % (33.0-51.0); Hemoglobin 14.7 g/dL (11.5-16.0); Mean Corpuscular HGB 30.1 pg (26.0-34.0); Mean Corpuscular HGB Conc 33.6 g/dL (31.5-36.5); Mean Corpuscular Volume 90 fL (80-100); Mean Platelet Volume 11.1 fL (9.1-12.4); Platelet Count 211 K/mm3 (150-400); RDW Coefficient Variation 12.3 % (11.7-14.2); RDW Standard Deviation 41.1 fL (35.1-46.3); Red Blood Cell Count 4.88 M/mm3 (3.80-5.20); White Blood Cell Count 7.09 K/mm3 (4.00-11.30)
[2021-09-04 22:18] LABS: BAND PERCENT MAN 4 % (0-8); BASOPHILS ABSOLUTE MAN 0.07 K/mm3 (0.00-0.23); BASOPHILS PERCENT MAN 1 % (0-2); EOSINOPHILS ABSOLUTE MAN 0.21 K/mm3 (0.00-0.68); EOSINOPHILS PERCENT MAN 3 % (0-6); LYMPHOCYTES % ATYPICAL MANUAL 17 % (0-0); LYMPHOCYTES ABSOLUTE MAN 3.11 K/mm3 (0.84-5.20); LYMPHOCYTES PERCENT MAN 27 % (21-46); MONOCYTES ABSOLUTE MAN 0.28 K/mm3 (0.16-1.47); MONOCYTES PERCENT MAN 4 % (4-13); SEG NEUTROPHILS PERCENT MAN 44 % (41-73); TOTAL CELLS COUNTED 100
[2021-09-04] MEDS ORDERED: Prednisone20 MG PO (22:20)
[2021-09-04 22:44] LABS: Alanine Aminotransfer (ALT/SGP 42 U/L (12-78); Albumin, Blood 3.7 g/dL (3.4-5.0); Albumin/Globulin Ratio 0.9 (0.8-1.8); Alk Phos 96 U/L (50-136); Anion Gap 4 mmol/L (6-16); Aspartate Aminotrans (AST/SGOT 51 U/L (12-37); Bilirubin, Total 0.9 mg/dL (0.1-1.0); Blood Urea Nitrogen 7 mg/dL (8-24); Bun/Creatinine Ratio 13.6 (12.0-20.0); CO2, Blood 28 mmol/L (21-32); Calcium, Blood 9.1 mg/dL (8.5-10.1); Chloride, Blood 107 mmol/L (98-108); Creatinine, Blood 0.52 mg/dL (0.40-1.00); Globulin, Blood 4.3 g/dL (2.2-4.0); Glomerular Filtration Rate >60 (60-); Glucose, Blood 105 mg/dL (70-99); Potassium, Blood 5.1 mmol/L (3.5-5.5); Sodium, Blood 139 mmol/L (136-145)
== END 2021-09-04 23:52 | disposition home or self-care (01) ==
LOC: ER 20:42
PROVIDERS: Emergency Medicine
DX: J44.1 Chronic obstructive pulmonary disease with (acute) exacerbation (principal); F17.200 Nicotine dependence, unspecified, uncomplicated; Z88.5 Allergy status to narcotic agent; Z91.030 Bee allergy status; Z88.8 Allergy status to other drugs, medicaments and biological substances; Z79.899 Other long term (current) drug therapy
CPT/HCPCS: 36415; 71045; 80053; 84703; 85025; 93005; 93010; 94644; 99285-25; J2930; J7512

== ENCOUNTER 2022-08-11 11:18 | Inpatient (IN) | payer OTHER ==
[~2022-08-11] VITALS: Ht 152.4 cm; Wt 72.6 kg
[~2022-08-11 11:18] MED LIST changes: +Prednisone20 MG PO
[2022-08-11 11:37] LABS: PCO2 Arterial 43.9 mmHg (35-45); PO2 Arterial 128 mmHg (80-100); pH Blood Arterial 7.36 (7.35-7.45)
[2022-08-11 11:58] LABS: BASOPHILS ABSOLUTE AUTO 0.03 K/mm3 (0.00-0.23); BASOPHILS PERCENT AUTO 1 % (0-2); EOSINOPHILS ABSOLUTE AUTO 0.25 K/mm3 (0.00-0.68); EOSINOPHILS PERCENT AUTO 4 % (0-6); Hematocrit 35.2 % (33.0-51.0); Hemoglobin 12.2 g/dL (11.5-16.0); IMMATURE GRAN ABSOLUTE AUTO 0.02 K/mm3 (0.00-0.10); IMMATURE GRAN PERCENT AUTO 0 % (0-1); LYMPHOCYTES ABSOLUTE AUTO 0.89 K/mm3 (0.84-5.20); LYMPHOCYTES PERCENT AUTO 16 % (21-46); MONOCYTES ABSOLUTE AUTO 0.75 K/mm3 (0.16-1.47); MONOCYTES PERCENT AUTO 13 % (4-13); Mean Corpuscular HGB 31.5 pg (26.0-34.0); Mean Corpuscular HGB Conc 34.7 g/dL (31.5-36.5); Mean Corpuscular Volume 91 fL (80-100); Mean Platelet Volume 10.7 fL (9.1-12.4); NEUTROPHILS ABSOLUTE AUTO 3.78 K/mm3 (1.96-9.15); NEUTROPHILS PERCENT AUTO 66 % (41-73); Platelet Count 176 K/mm3 (150-400); RDW Coefficient Variation 12.2 % (11.7-14.2); RDW Standard Deviation 40.2 fL (35.1-46.3); Red Blood Cell Count 3.87 M/mm3 (3.80-5.20); White Blood Cell Count 5.72 K/mm3 (4.00-11.30)
[2022-08-11 12:11] LABS: Albumin, Blood 3.4 g/dL (3.4-5.0); Albumin/Globulin Ratio 0.9 (0.8-1.8); Bilirubin, Total 0.4 mg/dL (0.1-1.0); Bun/Creatinine Ratio 13.5 (12.0-20.0); Calcium, Blood 8.5 mg/dL (8.5-10.1); Creatinine, Blood 0.74 mg/dL (0.40-1.00); Globulin, Blood 3.7 g/dL (2.2-4.0); Potassium, Blood 3.5 mmol/L (3.5-5.5); Total Protein, Blood 7.1 g/dL (6.4-8.2)
[2022-08-11 12:32] LABS: Influenza B, PCR NEGATIVE (NEGATIVE); Resp Syncytial Virus, PCR NEGATIVE (NEGATIVE); SARS-Cov-2 (COVID-19) PCR, MMC NEGATIVE (NEGATIVE)
[2022-08-11 12:41] LABS: Influenza A, PCR POSITIVE (NEGATIVE)
[2022-08-11 17:16] LABS: Base Excess Venous -3.1 mmol/L; Bicarbonate Venous 21.6 mmol/L (24.0-30.0)
--- NOTE | 2022-08-11 18:15 | NUR ---
1610 - PT ARRIVED TO PCU 18, THRASHING IN BED, YELLING OVER BIPAP AND RIPPING IT OFF. REFUSING TO WEAR BIPAP. PT SLID OVER TO BED WITH ASSISTANCE. PT SOILED, BATHED AND CHANGED INTO CLEAN GOWN AND BRIEF. YELLING INCOHERENTLY AND AGITATED WHEN AWAKE - PRN ATIVAN GIVEN AND ABLE TO PLACE BIPAP BACK ON PT. 1622 - PT PULLING OFF BIPAP AND AGITATED AGAIN. ATTEMPTED TO USE NASAL CANNULA UNSUCESSFULLY AND RT AT BEDSIDE. DR. RAMOS NOTIFIED AND ORDER FOR ICU TRANSFER FOR PRECEDEX. 1655 - PT TRANSFERRED TO ICU06 AND BEDSIDE REPORT GIVEN TO ИВАН RN ASSUMING CARE. ATTEMPTED TO CALL PATIENT SIGNIFICANT OTHER - GILMA @ [phone] WITH NO ANSWER.
--- NOTE | 2022-08-11 19:13 | NUR ---
PT ARRIVAL.... PT ARRIVED ON THE UNIT AT 1745. PT WAS AGITATED, GRABBING AT LINES AND WOULD NOT KEEP BIPAP MASK ON. PRECEDEX WAS STARTED AT 0.04MCG. ONCE THE PRECEDEX WAS STARTED THE PT WAS COMPLIANT WITH WEARING THE BIPAP. BIPAP SETTINGS 12/7 AND 30% WITH O2 SATS >90%. THE PT'S RR HAS BEEN IN THE 20'S-30'S. BP AND HR STABLE. CALL LIGHT IN REACH WILL CONTINUE TO MONITOR UNTIL REPORT IS GIVEN TO ONCOMING RN.
--- NOTE | 2022-08-11 19:18 | NUR ---
TOOK OVER CARE OF PT AT 1900. PT ON BIPAP 12/30%. PT ON 0.7 PRECEDEX GTT.
--- NOTE | 2022-08-12 05:15 | NUR ---
SUMMARY NEURO: PT ON PRECEDEX GTT AT 1.4. PT IS A/OX4 WHEN PAUSED. EQUAL STRENGTH IN ALL EXTREMETIES. PT IS IMPULSIVE. LUNGS: INSPIRATORY AND EXPIRATORY WHEEZES THROUGHOUT. PT IS ON BIPAP 12/40%. DURING PERIODS OF AGITATION PT WILL RIP BIPAP OFF AND SCREAM " HELP ME, I CANT BREATH" BUT THEN WILL REFUSE BIPAP UNTIL PRN MEDICATIONS GIVEN, WELL YELLING PROFANITIES AT STAFF. PT DESATTING INTO THE MID 70'S DURING THESE EPISODES. PT EDUCATED AND VERBALIZED UNDERSTANDING OF OXYGEN NEEDS. SKIN: SCATTERED LESIONS THROUGHOUT, IN VARIOUS STAGES OF HEALING. CARDIAC: NSR, PULSES PRESENT. GI: WNL ; INCONTINENT, BRIEF IN PLACE
[2022-08-12 07:24] LABS: BASOPHILS PERCENT AUTO 0 % (0-2); EOSINOPHILS PERCENT AUTO 0 % (0-6); Hematocrit 35.6 % (33.0-51.0); Hemoglobin 11.9 g/dL (11.5-16.0); IMMATURE GRAN ABSOLUTE AUTO 0.03 K/mm3 (0.00-0.10); IMMATURE GRAN PERCENT AUTO 1 % (0-1); LYMPHOCYTES ABSOLUTE AUTO 1.21 K/mm3 (0.84-5.20); LYMPHOCYTES PERCENT AUTO 21 % (21-46); MONOCYTES PERCENT AUTO 5 % (4-13); Mean Corpuscular HGB 31.2 pg (26.0-34.0); Mean Corpuscular HGB Conc 33.4 g/dL (31.5-36.5); Mean Corpuscular Volume 93 fL (80-100); Mean Platelet Volume 10.7 fL (9.1-12.4); NEUTROPHILS ABSOLUTE AUTO 4.31 K/mm3 (1.96-9.15); NEUTROPHILS PERCENT AUTO 74 % (41-73); Platelet Count 160 K/mm3 (150-400); RDW Standard Deviation 41.4 fL (35.1-46.3); Red Blood Cell Count 3.82 M/mm3 (3.80-5.20); White Blood Cell Count 5.85 K/mm3 (4.00-11.30)
[2022-08-12 07:42] LABS: Albumin, Blood 3.2 g/dL (3.4-5.0); Albumin/Globulin Ratio 0.8 (0.8-1.8); Bilirubin, Total 0.4 mg/dL (0.1-1.0); Bun/Creatinine Ratio 11.9 (12.0-20.0); Calcium, Blood 8.3 mg/dL (8.5-10.1); Creatinine, Blood 0.51 mg/dL (0.40-1.00); Globulin, Blood 3.9 g/dL (2.2-4.0); Magnesium, Blood 2.3 mg/dL (1.6-2.4); Potassium, Blood 4.5 mmol/L (3.5-5.5); Total Protein, Blood 7.1 g/dL (6.4-8.2)
--- NOTE | 2022-08-12 07:55 | NUR ---
ASSUMED CARE BEDSIDE REPORT FROM LYNETTE DUNN AT 0700. PT RESTING IN BED. APPEARS TO BE SLEEPING WHEN UNDISTURBED. WAKES c VERBAL STIMULI. GARBLED SPEECH. MUMBLES WORDS, UNABLE TO UNDERSTAND. RETURNS TO SLEEP WHEN UNDISTURBED. AGITATED c CARE. PULLING ON LINES/GOWN. PRECEDEX GTT FOR BIPAP COMPLIANCE. 08/23/40%, TV MID 400'S. RR 25-35. O2 SATS>97%. INSPIRATORY AND EXPIRATORY WHEEZES THROUGHOUT. SR/SB ON MONITOR. RATE 50-70'S. BP STABLE. PT INCONTINIENT OF URINE, ATTENDS IN PLACE. PIV X 2. ABLE TO REPOSITION SELF IN BED. WILL CONTINUE TO MONITOR.
--- NOTE | 2022-08-12 17:32 | NUR ---
SHIFT SUMMARY PT REMAINED ON BIPAP UNTIL APPROX 1500, PLACED ON 3L VIA NC. O2 SATS >93%. TITRATED OFF WHILE PT WAS SLEEPING. PT WOKE, REQUESTING MEAL, PROVIDED. O2 SATS DECREASE c EXERTION, CURRENTLY ON 3L VIA NC. CONTINUES TO INSPIRATORY AND EXPIRATORY WHEEZES. PRODUCTIVE COUGH c CLEAR SPUTUM. PRECEDEX TITRATED OFF THIS SHIFT. MOOD LABILE. IRRITABLE c CARE AND c STAFF. A&OX 3. TOLERATED MEAL WELL. ATTENDS REMAIN IN PLACE, PT INCONTINENT OF URINE. WILL CONTINUE TO MONITOR.
--- NOTE | 2022-08-12 21:30 | NUR ---
PT AND PARTNER REQUESTING A TO UPDATE ON PT'S CONDITION AND PLAN OF CARE. DR. SHERWOOD NOTIFIED OF REQUEST AND THEN CAME TO BEDSIDE. PT AND PARTNER EXPRESSED WISHED TO LEAVE AMA. APPROPRIATE FORMS FILLED OUT, EDUCATION COMPLETED VIA ON RISK AND BENEFITS. ALL PT'S BELONGING LEFT WITH PT.
== END 2022-08-12 21:35 | disposition left against medical advice (07) | DRG 193 ==
LOC: ER 11:18 → ERHOLD 14:04 → PCU 16:03 → ICUE 17:36
PROVIDERS: Emergency Medicine; Nurse Practitioner Acute Care; ADMIT Student in an Organized Health Care Education/Training Program
PROC: 5A09357 Assistance with Respiratory Ventilation, Less than 24 Consecutive Hours, Continuous Positive Airway Pressure (ICD-10-PCS; principal; 2022-08-11)
DX: J10.00 Influenza due to other identified influenza virus with unspecified type of pneumonia (principal); G92.8 Other toxic encephalopathy; J96.01 Acute respiratory failure with hypoxia; J96.02 Acute respiratory failure with hypercapnia; J45.901 Unspecified asthma with (acute) exacerbation; J44.1 Chronic obstructive pulmonary disease with (acute) exacerbation; F15.10 Other stimulant abuse, uncomplicated; F41.9 Anxiety disorder, unspecified; R45.1 Restlessness and agitation; Z20.822 Contact with and (suspected) exposure to COVID-19; F17.210 Nicotine dependence, cigarettes, uncomplicated; Z79.51 Long term (current) use of inhaled steroids; Z98.890 Other specified postprocedural states; Z88.8 Allergy status to other drugs, medicaments and biological substances; Z88.5 Allergy status to narcotic agent; Z91.038 Other insect allergy status
CPT/HCPCS: 0241U; 36415; 36600; 71045; 80053; 82803; 83605; 83735; 83880; 84145; 84484; 85025; 87040; 93005; 93010; 94640; 94644; 94660; 94664; 96365; 96366; 96367; 96375; 99285-25; A9270; J0456; J0696; J1650; J2060; J2930; J3475; J7030; J7050

== ENCOUNTER 2022-10-25 00:16 | Emergency (ER) | payer OTHER ==
[~2022-10-25] VITALS: Ht 162.6 cm; Wt 72.6 kg
== END 2022-10-25 00:45 | disposition home or self-care (01) ==
LOC: ER 00:16
DX: J45.901 Unspecified asthma with (acute) exacerbation (principal); F17.200 Nicotine dependence, unspecified, uncomplicated; Z91.030 Bee allergy status; Z88.8 Allergy status to other drugs, medicaments and biological substances; Z88.6 Allergy status to analgesic agent; Z79.899 Other long term (current) drug therapy
CPT/HCPCS: A9270

== ENCOUNTER 2022-11-05 13:23 | Emergency (ER) | payer OTHER ==
[~2022-11-05] VITALS: Ht 152.4 cm; Wt 72.6 kg
[2022-11-05 14:15] LABS: BASOPHILS ABSOLUTE AUTO 0.05 K/mm3 (0.00-0.23); BASOPHILS PERCENT AUTO 1 % (0-2); EOSINOPHILS ABSOLUTE AUTO 1.19 K/mm3 (0.00-0.68); EOSINOPHILS PERCENT AUTO 17 % (0-6); Hematocrit 39.8 % (33.0-51.0); Hemoglobin 13.6 g/dL (11.5-16.0); IMMATURE GRAN ABSOLUTE AUTO 0.04 K/mm3 (0.00-0.10); IMMATURE GRAN PERCENT AUTO 1 % (0-1); LYMPHOCYTES ABSOLUTE AUTO 2.08 K/mm3 (0.84-5.20); LYMPHOCYTES PERCENT AUTO 29 % (21-46); MONOCYTES ABSOLUTE AUTO 0.51 K/mm3 (0.16-1.47); MONOCYTES PERCENT AUTO 7 % (4-13); Mean Corpuscular HGB 30.1 pg (26.0-34.0); Mean Corpuscular HGB Conc 34.2 g/dL (31.5-36.5); Mean Corpuscular Volume 88 fL (80-100); NEUTROPHILS ABSOLUTE AUTO 3.21 K/mm3 (1.96-9.15); NEUTROPHILS PERCENT AUTO 45 % (41-73); Platelet Count 254 K/mm3 (150-400); RDW Coefficient Variation 11.9 % (11.7-14.2); RDW Standard Deviation 38.2 fL (35.1-46.3); Red Blood Cell Count 4.52 M/mm3 (3.80-5.20); White Blood Cell Count 7.08 K/mm3 (4.00-11.30)
[2022-11-05 14:28] LABS: Albumin, Blood 3.4 g/dL (3.4-5.0); Albumin/Globulin Ratio 0.8 (0.8-1.8); Bilirubin, Total 0.7 mg/dL (0.1-1.0); Bun/Creatinine Ratio 17.4 (12.0-20.0); Calcium, Blood 9.1 mg/dL (8.5-10.1); Creatinine, Blood 0.52 mg/dL (0.40-1.00); Globulin, Blood 4.5 g/dL (2.2-4.0); Potassium, Blood 3.6 mmol/L (3.5-5.5); Total Protein, Blood 7.9 g/dL (6.4-8.2)
== END 2022-11-05 15:00 | disposition left against medical advice (07) ==
LOC: ER 13:23
PROVIDERS: Physician Assistant
DX: R06.02 Shortness of breath (principal); J44.9 Chronic obstructive pulmonary disease, unspecified; F17.200 Nicotine dependence, unspecified, uncomplicated; Z88.5 Allergy status to narcotic agent; Z88.6 Allergy status to analgesic agent; Z88.1 Allergy status to other antibiotic agents; Z91.038 Other insect allergy status; Z79.899 Other long term (current) drug therapy
CPT/HCPCS: 36415; 71046; 80053; 83880; 84484; 85025; 93005; 93010; 94644; 94664; J2930

== ENCOUNTER 2022-11-09 17:33 | Inpatient (IN) | payer OTHER ==
[~2022-11-09] VITALS: Ht 152.4 cm; Wt 67.8 kg
[2022-11-09 18:48] LABS: BASOPHILS ABSOLUTE AUTO 0.05 K/mm3 (0.00-0.23); BASOPHILS PERCENT AUTO 1 % (0-2); EOSINOPHILS ABSOLUTE AUTO 1.24 K/mm3 (0.00-0.68); EOSINOPHILS PERCENT AUTO 13 % (0-6); Hematocrit 40.6 % (33.0-51.0); Hemoglobin 13.9 g/dL (11.5-16.0); IMMATURE GRAN ABSOLUTE AUTO 0.03 K/mm3 (0.00-0.10); IMMATURE GRAN PERCENT AUTO 0 % (0-1); LYMPHOCYTES ABSOLUTE AUTO 1.81 K/mm3 (0.84-5.20); LYMPHOCYTES PERCENT AUTO 19 % (21-46); MONOCYTES ABSOLUTE AUTO 0.42 K/mm3 (0.16-1.47); MONOCYTES PERCENT AUTO 4 % (4-13); Mean Corpuscular HGB 30.1 pg (26.0-34.0); Mean Corpuscular HGB Conc 34.2 g/dL (31.5-36.5); Mean Corpuscular Volume 88 fL (80-100); Mean Platelet Volume 9.7 fL (9.1-12.4); NEUTROPHILS ABSOLUTE AUTO 5.94 K/mm3 (1.96-9.15); NEUTROPHILS PERCENT AUTO 63 % (41-73); Platelet Count 247 K/mm3 (150-400); RDW Standard Deviation 38.6 fL (35.1-46.3); Red Blood Cell Count 4.62 M/mm3 (3.80-5.20); White Blood Cell Count 9.49 K/mm3 (4.00-11.30)
[2022-11-09 19:08] LABS: Albumin, Blood 3.8 g/dL (3.4-5.0); Albumin/Globulin Ratio 0.9 (0.8-1.8); Bilirubin, Total 0.8 mg/dL (0.1-1.0); Bun/Creatinine Ratio 24.1 (12.0-20.0); Calcium, Blood 8.9 mg/dL (8.5-10.1); Creatinine, Blood 0.54 mg/dL (0.40-1.00); Globulin, Blood 4.4 g/dL (2.2-4.0); Potassium, Blood 3.6 mmol/L (3.5-5.5); Total Protein, Blood 8.2 g/dL (6.4-8.2)
[2022-11-09 19:25] LABS: PCO2 Arterial 56.5 mmHg (35-45); PO2 Arterial 71.8 mmHg (80-100); pH Blood Arterial 7.29 (7.35-7.45)
[2022-11-09] MEDS ORDERED: Ventolin/Proventil INH (20:55)
[2022-11-09 20:56] LABS: Calcium, Ionized (POC) 1.03 mmol/L (1.10-1.46); Chloride (POC) 107 mmol/L (98-108); Creatinine (POC) 0.6 mg/dL (0.6-1.0); Glucose (ISTAT POC) 111 mg/dL (70-99); Hemoglobin (POC) 14.6 g/dL (12.0-16.0); Potassium (POC) 4.6 mmol/L (3.5-5.5); Sodium (POC) 142 mmol/L (135-148); Total CO2 (POC) 26 mmol/L (21-32)
[2022-11-09 21:26] LABS: Source, Urine Foley catheter
[2022-11-09 21:34] LABS: Bilirubin, Urine Neg (Neg); Blood, Urine 4+ (Neg); Glucose Qualitative, Urine Neg (Neg); Ketones, Urine Neg (Neg); Leukocyte Esterase, Urine Neg (Neg); Nitrite, Urine Neg (Neg); Protein, Urine 3+ (Neg); Urobilinogen, Urine NORM (Normal)
[2022-11-09 21:43] LABS: Appearance, Urine Hazy (Clear); Color, Urine Yellow (P-Yellow)
[2022-11-09 21:45] LABS: Bacteria Few /hpf; Hyaline Casts 0-2 /lpf (0-2); Red Blood Cells, Urine 25-50 /hpf (0-2); Squamous Epithelial Cells Mod /hpf (Few)
[2022-11-09 21:57] LABS: U Amphetamine Screen DETECTED; U Barbituate Screen Not Detected; U Benzodiazapine Screen DETECTED; U Buprenorphine Screen Not Detected; U Cannabinoids Screen Not Detected; U Cocaine Screen Not Detected; U Methadone Screen Not Detected; U Methamphetamine Screen DETECTED; U Opiates Screen Not Detected; U Oxycodone Screen Not Detected; U Phencyclidine Screen Not Detected; U Propoxyphene Screen Not Detected
[2022-11-10 03:34] LABS: BASOPHILS ABSOLUTE AUTO 0.02 K/mm3 (0.00-0.23); BASOPHILS PERCENT AUTO 0 % (0-2); EOSINOPHILS ABSOLUTE AUTO 0.01 K/mm3 (0.00-0.68); EOSINOPHILS PERCENT AUTO 0 % (0-6); Hematocrit 34.3 % (33.0-51.0); Hemoglobin 11.9 g/dL (11.5-16.0); IMMATURE GRAN ABSOLUTE AUTO 0.05 K/mm3 (0.00-0.10); IMMATURE GRAN PERCENT AUTO 1 % (0-1); LYMPHOCYTES ABSOLUTE AUTO 0.82 K/mm3 (0.84-5.20); LYMPHOCYTES PERCENT AUTO 8 % (21-46); MONOCYTES ABSOLUTE AUTO 0.05 K/mm3 (0.16-1.47); MONOCYTES PERCENT AUTO 1 % (4-13); Mean Corpuscular HGB 30.5 pg (26.0-34.0); Mean Corpuscular HGB Conc 34.7 g/dL (31.5-36.5); Mean Corpuscular Volume 88 fL (80-100); Mean Platelet Volume 9.9 fL (9.1-12.4); NEUTROPHILS ABSOLUTE AUTO 9.56 K/mm3 (1.96-9.15); NEUTROPHILS PERCENT AUTO 91 % (41-73); Platelet Count 208 K/mm3 (150-400); RDW Coefficient Variation 12.1 % (11.7-14.2); RDW Standard Deviation 38.9 fL (35.1-46.3); White Blood Cell Count 10.51 K/mm3 (4.00-11.30)
[2022-11-10 05:34] LABS: Alanine Aminotransfer (ALT/SGP 21 U/L (12-78); Albumin, Blood 3.2 g/dL (3.4-5.0); Albumin/Globulin Ratio 0.8 (0.8-1.8); Alk Phos 69 U/L (50-136); Anion Gap 0 mmol/L (6-16); Aspartate Aminotrans (AST/SGOT 14 U/L (12-37); Bilirubin, Total 0.7 mg/dL (0.1-1.0); Blood Urea Nitrogen 10 mg/dL (8-24); Bun/Creatinine Ratio 22.7 (12.0-20.0); CHOL/HDL RATIO 2.7; CO2, Blood 28 mmol/L (21-32); Calcium, Blood 8.5 mg/dL (8.5-10.1); Chloride, Blood 112 mmol/L (98-108); Cholesterol 121 mg/dL (50-200); Creatinine, Blood 0.44 mg/dL (0.40-1.00); Globulin, Blood 3.8 g/dL (2.2-4.0); Glomerular Filtration Rate 125 (60-); Glucose, Blood 174 mg/dL (70-99); HDL Cholesterol 45 mg/dL (>39); LDL/HDL RATIO 1.6; Low Density Lipoprotein Chol 71 mg/dL (0-110); Potassium, Blood 4.4 mmol/L (3.5-5.5); Sodium, Blood 140 mmol/L (136-145); Triglycerides 25 mg/dL (30-160); Very Low Density Lipoprot Chol 5 mg/dL (6-32)
--- NOTE | 2022-11-10 06:49 | NUR ---
PT ARRIVED FROM ED AT 2100. EXTREMELY AGITATED. DOES NOT FOLLOW COMMANDS OR NOD APPROPRIATELY. RESTRAINED WITH PROPOFOL AND PRECEDEX GTT INFUSING, PRN ATIVAN GIVEN. SR WITH MAP >65. INTUBATED. OGT IN PLACE TO LIS. YG [place].
--- NOTE | 2022-11-10 07:15 | NUR ---
Assumed care of pt at 0700. Report received from Alireza DUNN. Pt is receiving propofol at 40 mcg/kg/min and precedex at 0.7 mcg/kg/hr. Pt is calm and appears sedated in the absence of stimulation. Patient has a RASS of +3 with any auditory stimulus, including montior alarms. Unable to further increase sedation due to blood pressure. Plan to address pt comfort with Dr Kearns.
[2022-11-10 13:32] LABS: Adenovirus Not Detected (NOT DETECT); Coronavirus 229E Not Detected (NOT DETECT); Coronavirus HKU1 Not Detected (NOT DETECT); Coronavirus NL63 Not Detected (NOT DETECT); Coronavirus OC43 Not Detected (NOT DETECT); Human Metapneumovirus Not Detected (NOT DETECT); Human Rhinovirus/Enterovirus Not Detected (NOT DETECT); Influenza A/2009-H1 Not Detected (NOT DETECT); Influenza A/H1 Not Detected (NOT DETECT); Influenza A/H3 Not Detected (NOT DETECT); Influenza B Not Detected (NOT DETECT); Parainfluenza Virus 1 Not Detected (NOT DETECT); Parainfluenza Virus 2 Not Detected (NOT DETECT); Parainfluenza Virus 3 Not Detected (NOT DETECT); SARS-Cov-2 (COVID-19), BioFire Not Detected (NOT DETECT)
[2022-11-10 13:33] LABS: Bordetella pertussis Not Detected (NOT DETECT); Chlamydophila pneumoniae Not Detected (NOT DETECT); Mycoplasma pneumoniae Not Detected (NOT DETECT); Parainfluenza Virus 4 Not Detected (NOT DETECT); Respiratory Syncytial Virus Not Detected (NOT DETECT)
--- NOTE | 2022-11-10 15:25 | NUR ---
20 mg rocuronium given from RSI kit per v/o Dr Kearns. Pt is having coughing episodes, despite heavy sedation, that often causes bradycardia.
--- NOTE | 2022-11-10 18:52 | NUR ---
SUMMARY Neuro: Currently precedex is off. Propofol is 40 mcg/kg/min. Ketamine at 1 mg/kg/hr. Pt is reponsive to painful stimulus. Pt does not become agitated with stimulation, as she did this morning. This morning, pt was flailing legs in bed and attempting to sit up if she was stimulated at all. Musc: In bilat wrist restraints to prevent self-extubation. Moves all extremities with equal strength and range of motion. Resp: 8.0 cm ETT is 22 cm at lip. Vent settings ACVC 15/355/5/60%. Pt wheezy in all lung zhu. Cardiac: SR per monitor. BP stable. GI: OG tube advanced and TF started per orders. : Good urine output through [place] today Skin: Unchanged from initial assessment.
[2022-11-11 03:45] LABS: Bun/Creatinine Ratio 26.4 (12.0-20.0); Calcium, Blood 8.6 mg/dL (8.5-10.1); Creatinine, Blood 0.42 mg/dL (0.40-1.00); Magnesium, Blood 2.6 mg/dL (1.6-2.4); Phosphorus, Blood 2.6 mg/dL (2.5-4.9); Potassium, Blood 3.8 mmol/L (3.5-5.5)
[2022-11-11 04:24] LABS: Hemoglobin 11.1 g/dL (11.5-16.0); Mean Corpuscular HGB 30.1 pg (26.0-34.0); Mean Corpuscular HGB Conc 33.6 g/dL (31.5-36.5); Mean Corpuscular Volume 89 fL (80-100); Mean Platelet Volume 10.6 fL (9.1-12.4); Platelet Count 246 K/mm3 (150-400); RDW Coefficient Variation 12.4 % (11.7-14.2); RDW Standard Deviation 40.1 fL (35.1-46.3); Red Blood Cell Count 3.69 M/mm3 (3.80-5.20); White Blood Cell Count 14.79 K/mm3 (4.00-11.30)
--- NOTE | 2022-11-11 06:35 | NUR ---
SHIFT SUMMARY NEURO: PT VERY AGITATED WITH MINIMAL STIMULATION; WILL THRASH HEAD BACK AND FORTH, KICK LEGS IN BED AND AGAINST RAILS, PULL AT RESTRAINTS, ETC. REQUIRED INCREASE OF KETAMINE AND PROPOFOL OVERNIGHT TO ACHIEVE APPROPRIATE SEDATION LEVEL. CONTINUES TO BE INTERMITTENTLY AGITATED, BUT ABLE TO CALM MORE QUICKLY TOWARD END OF SHIFT. CV: MONITOR SHOWING SR/ST, HR 90-110S. NORMOTENSIVE; SBP 110-130S. TMAX 99.9F PER RONQUILLO PROBE. PULM: CONTINUES ON VENT, VC 15/355/5/50%. COPIOUS AMOUNTS OF ORAL SECRETIONS SUCTIONED. FREQUENT COUGH, PRODUCTING LARGE AMOUNT OF WHITE SPUTUM IN ETT. LESS WHEEZY OVERALL THAN PREVIOUS SHIFT. PATIENT BECOMES TACHYPNIC (RR 30-40S) WITH ANY STIMULATION/AGITATION MENTIONED ABOVE. GI: VHP INFUSING @ 20CC/HR (GOAL) PER OGT. NO BM THIS SHIFT. : EXCELLENT URINE OUTPUT VIA RONQUILLO CATH; 1400CC CLEAR YELLOW OUTPUT OVERNIGHT.
--- NOTE | 2022-11-11 08:00 | NUR ---
PT REMAINS INTUBATED, SEDATED, MECHANICALLY VENTILATED, AND RESTRAINED. PT OPEN EYES TO VOICE. PT BECOMES AGITATED WITH NOXIOUS STIMULI. PT THRASHING IN BED WITH AM CARE/ORAL CARE. PROPOFOL DRIP INCREASED TO 65 MCG/KG/MIN AND KETAMINE TITRATED UP TO 1.2 MG/KG/HR. IN ADDITION, PT MED WITH ATIVAN 1 MG IVP X 1-SEE EMAR. ECG SHOWS ST WITH RATE 100'S. SBP 110'S. NO NOTED EDEMA. DP/PT PULSES 2+. LUNGS TIGHT THROUGH OUT AND DIMINISHED IN THE BASES. ETT 8.0/22 @ LIP. ETT TO VENT: VC 15, TV 355, FIO2 50%, PEEP 5-SATS>90%. ETT SUCTION PRODUCTIVE OF A MODERATE AMOUNT OF THICK, YELLOW SECRETIONS. OGT FEEDS TOLERATED WELL @ GOAL OF 20 CC/HR. PT PASSING FLATUS, BUT NO BM YET THIS AM. RONQUILLO TO BSD WITH ADEQUATE AMOUNT OF YELLOW URINE OUTPUT. PT HAS AN ABRASION ABOVE HER LEFT EYE BROW THAT IS OPEN TO AIR. PT SKIN OTHERWISE C/D/I.
--- NOTE | 2022-11-11 08:10 | NUR ---
PT RESTING QUIETLY ON THE VENT AT THIS TIME. FIO2 TITRATED DOWN TO 35% AND SATS STILL >90%
--- NOTE | 2022-11-11 10:00 | NUR ---
DR. PORTILLO IN TO SEE PT. FULL UPDATE GIVEN. PROPOFOL DRIP TITRATED DOWN TO 35 MCG/KG/MIN AND PT PLACED ON PS 12-TV 350-400'S AND SATS>90%
--- NOTE | 2022-11-11 11:30 | NUR ---
PT AGITATED WITH ORAL CARE AND REPOSITIONING. TV 200'S AND RR 30'S WITH AGITATION. MED WITH ATIVAN 1 MG IVP X 1. PT FOLLOWING COMMANDS TO SQL DATA ANALYST WITH BOTH HANDS, BUT IS EASILY AGITATED WITH MINIMAL STIMULI. TEMP 99.9-BLANKETS REMOVED. HR 100'S ST. SBP 110'S. LUNGS REMAIN TIGHT THROUGH OUT AND DIMINISHED IN THE BASES. SATS >90% IM FIO2 35%
--- NOTE | 2022-11-11 11:52 | NUR ---
DR. PORTILLO IN TO SEE PT. TV 300'S AND SATS >90% ON FIO2 35%. PROPOFOL DRIP ON STANDBY PER DR. PORTILLO ORDER. PT NODDED HER HEAD WHEN ASKED IF SHE UNDERSTOOD DR. PORTILLO PLAN OF POSSIBLE EXTUBATION LATER TODAY.
--- NOTE | 2022-11-11 12:23 | NUR ---
PT REMAINS AGITATED. PT KICKING HER LEGS AND PULLING ON RESTRAINTS. DR. PORTILLO AT BEDSIDE. KETAMINE AND PROPOFOL DRIPS OFF. PRECEDEX DRIP STARTED @ 1.4 MCG/KG/MIN. RR 40'S. TV 275-400'S. PS 10/5-FIO2 35%
--- NOTE | 2022-11-11 13:40 | NUR ---
PRECEDEX DRIP TITRATED DOWN TO 1.0 MCG/KG/MIN PER DR. PORTILLO VERBAL ORDER.
--- NOTE | 2022-11-11 13:45 | NUR ---
PRECEDEX DRIP OFF.PT THRASHING AND KICKING IN THE BED. DR. PORTILLO AT BEDSIDE.
--- NOTE | 2022-11-11 13:50 | NUR ---
PT EXTUBATED AND PLACED ON 2 LITERS NASAL CANULA. ALL SEDATION AND RESTRAINTS OFF AT THIS TIME. RESPIRATIONS SNOROUS, BUT REGULAR WITH RATE OF 20-22 AND NON-LABORED. SATS>95%. PT GIVEN SPONGED BATH AND LINEN CHANGE COMPLETED-TOLERATED WELL. SHAMPOO DONE-WHEN COMBING PT HAIR, NOTED TWO SCABS TO THE TOP OF HER HEAD. PHOTO TAKEN OF SCABS TO THE TOP OF THE HEAD AND THE ONE TO THE LEFT EYEBROW ARE-ALL THREE WOUNDS ARE STRADDLE BUG OPERATOR AND NO SIGNS OF INFECTION OR DRAINAGE NOTED.
--- NOTE | 2022-11-11 16:00 | NUR ---
PT SLEEPS MAINLY WHEN NOT DISTURBED. PT OPENS EYES TO VOICE AND FOLLOWS SOME SIMPLE COMMANDS. PT EASILY AGITATED WITH STIMULI. PT REMAINS OFF OF ALL SEDATION. TEMP 99.9. HR 80'S SR. SBP 90-110'S. LUNGS REMAIN TIGHT AND DIMINISHED TO THE BASES. LEFT UPPER LOBE WITH SCATTERED COARSE RHONCHI. PT HAS OCCASIONAL LOOSE COUGH PRODUCTIVE OF MODERATE AMOUNT OF THICK, WHITE SPUTUM. PT NPO. RONQUILLO CONTINUES TO DRAIN ADEQUATE AMOUNT OF YELLOW URINE TO BSD. PT ABRASIONS X 3 CRYSTALIZER TENDER-SEE PHOTOS. NO DRAINAGE OR SIGNS AND SYMPTOMS OF INFECTION NOTED.
--- NOTE | 2022-11-11 17:37 | NUR ---
PT BOOSTED IN BED AND ASKED TO COUGH AT 1730 SATS TRENDING 89-90%. PT STATES "NO" WHEN ASKED IF SHE COULD COUGH. ONCE BOOSTED IN BED, PT BEGAN COUGHING AND BECAME EXTREMELY AGITATED. LUNGS WHEEZY THROUGH OUT AND AUDIBLY WHEEZY. SATS DROPPED TO 60 %. RR 40'S AND PT USING ACCESSORY MUSCLES TO BREATHE. PT PLACED ON 12 LITERS OXYMIZER. PRECEDEX DRIP INITIATED @ 1.4 MCG/KG/MIN AND PT MED WITH ATIVAN 4 MG IVP X 1. RT AND DR. PORTILLO AT BEDSIDE. PT TO RECIEVE BACK TO BACK NEB.
--- NOTE | 2022-11-11 18:30 | NUR ---
PT RESTING QUIETLY WITH PRECEDEX @ 1.4 MCG/KG/MIN. PT NO LONGER AUDIBLY WHEEZY. SATS>90% NO NOTED RESPIRATORY DISTRESS AT THIS TIME.
--- NOTE | 2022-11-11 19:30 | NUR ---
ASSUMPTION OF CARE Patient sedated on precedex at 1.4mg/kg/min. Open eyes to noxious stimuli, but just grunts in response to questions and drifts back to sleep. Lungs sounds tight, clear, diminished. Patient currently satting >94% on 10L oxymizer. Monitor showing SB/SR, HR 50-60s. SBP 120-140s. Faria catheter draining clear, yellow urine.
[2022-11-12 04:01] LABS: Hematocrit 34.8 % (33.0-51.0); Hemoglobin 11.4 g/dL (11.5-16.0); Mean Corpuscular HGB 29.8 pg (26.0-34.0); Mean Corpuscular HGB Conc 32.8 g/dL (31.5-36.5); Mean Corpuscular Volume 91 fL (80-100); Mean Platelet Volume 10.7 fL (9.1-12.4); Platelet Count 220 K/mm3 (150-400); RDW Coefficient Variation 12.9 % (11.7-14.2); RDW Standard Deviation 42.3 fL (35.1-46.3); Red Blood Cell Count 3.83 M/mm3 (3.80-5.20); White Blood Cell Count 9.68 K/mm3 (4.00-11.30)
[2022-11-12 04:20] LABS: Bun/Creatinine Ratio 37.9 (12.0-20.0); Calcium, Blood 8.8 mg/dL (8.5-10.1); Creatinine, Blood 0.45 mg/dL (0.40-1.00); Potassium, Blood 4.4 mmol/L (3.5-5.5)
--- NOTE | 2022-11-12 07:24 | NUR ---
SHIFT SUMMARY OVERNIGHT, PATIENT CYCLED BETWEEN SLEEPING SOUNDLY AND VERY AGITATED. REFUSED TO ANSWER QUESTIONS; REGULARLY STATING "F YOU" AND USING OTHER PROFANITIES TOWARD STAFF WHEN ASKED QUESTIONS. WEANED BACK SEDATION TO ATTEMPT A THOROUGH NEURO ASSESSMENT; PRECEDEX DOWN FROM 1.4 TO 0.6 THIS AM. HOWEVER, PATIENT STILL WAKES UP, BEGINS TO COUGH, AND THEN RIPS OFF ALL OF HER OXYGEN TUBING, WIRES, ETC. BECOMES AGITATED, TACHYPNIC, DESATS, AUDIBLY WHEEZY. DIFFICULT TO REDIRECT PATIENT AND PLACE NECESSARY EQUIPMENT BACK IN PLACE, BUT IS ABLE TO CALM AFTER SOME TIME WHEN SHORTNESS OF BREATH IMPROVES. ON 6-10L OXYMIZER OVERNIGHT. COUGHS UP MODERATE AMOUNT OF THICK, WHITE SPUTUM. SB/SR, 40-60S. NORMOTENSIVE. AFEBRILE. ADEQUATE URINE OUTPUT VIA RONQUILLO CATH. PATIENT SLEEPING QUIETLY AT THIS TIME.
--- NOTE | 2022-11-12 08:00 | NUR ---
PT AWAKENED TO VOICE. PT YELLS "NO!" WHEN ASKED TO FOLLOW COMMANDS. PT ORIENTED TO SELF AND MOVES ALL EXTREMITIES. PT IS IMPULSIVE AND DIFFICULT TO RE-DIRECT. BED ALARM ON. PT BEGAN KICKING HER LEGS AND THRASHING IN THE BED WHEN ADL'S/ORAL CARE ATTEMPTED-THIS WAS WITH PRECEDEX @ 0.6 MCG/KG/MIN. PT MEDICATED WITH ATIVAN 2 MG IVP X 1. HR IN THE 40'S AT TIMES-[place]. SBP TRENDING 130'S. NO EDEMA NOTED. LUNGS TIGHT THROUGH OUT AND COARSE TO UPPER LOBES. PT HAS HARSH, MOIST COUGH-OCCASIONALLY PRODUCTIVE OF MODERATE TO LARGE AMOUNT OF THICK, TANISH SECRETIONS. PT NPO. NO GI DISTRESS NOTED. PT PASSING FLATUS. SKIN OVERALL IS C/D/I. SCABS X 2 TO THE TOP OF THE HEAD REMAIN FRANKLIN AND NO SIGNS/SYMPTOMS OF INFECTION. THE SCAB TO THE LEFT EYEBROW IS ALSO CARDIOVASCULAR PHYSICIAN ASSISTANT AND NO SIGNS AND SYMPTOMS OF INFECTION. CALL LIGHT WITHIN REACH, BUT PT DOES NOT UTILIZE APPROPRIATELY.
--- NOTE | 2022-11-12 12:00 | NUR ---
PT RESTS QUIETLY WHEN NOT DISTURBED ON PRECEDEX @ 0.4 MCG/KG/MIN. WITH STIMULI, PT BECOMES AGITATED. PT MEDICATED WITH ATIVAN PRN AGITATION. CURRENTLY, VSS AND NO RESPIRATORY DISTRESS WHEN PT IS NO ANXIOUS AND AGITATED. LUNGS REMAIN TIGHT THROUGH OUT, SCATTERED COARSE RHONCHI TO UPPER LOBES, AND DIMINISHED TO THE BASES. SATS>90% ON 10 LITERS OXYMIZER.
--- NOTE | 2022-11-12 15:30 | NUR ---
PT AWAKENED WHEN SHE STARTED COUGHING.SHE THEN ATTEMPTED TO GET OUT OF BED. PT PULLED OFF HER O2 AND HER SATS DROPPED TO 80%. PT DOES NOT RE-DIRECT OR FOLLOW COMMANDS. PRECEDEX DRIP TITRATED UP TO 0.6 MCG/KG/MIN WITH MINIMAL IMPROVEMENT IN AGITATION-PT MED WITH ATIVAN 2 MG IVP X 1 AND PT STILL KICKING HER LEGS AND THRASHING IN THE BED. ATIVAN 2 MG IVP X 1 GIVEN-SEE EMAR. WITH THE AGITATION, PT BECOMES AUDIBLY WHEEZY AND LUNGS WHEEZY AND TIGHT THROUGH OUT. RT CALLED FOR NEB TREATMENT. PT DID COUGH UP A LARGE AMOUNT OF THICK, [place] SPUTUM AND ALLOWED FOR YANKEUR SUCTION.
--- NOTE | 2022-11-12 17:30 | NUR ---
BY TO SEE PT. UPDATE GIVEN. PT RESTS WHEN NOT DISTURBED ON PRECEDEX @ 0.6 MCG/KG/MIN. PT VERY EASILY AGITATED. MEDICATED FOR ANXIETY/AGITATION APROXIMATELY EVERY 2 HOURS WITH ATIVAN-SEE EMAR. RR 16-20. SATS >90% ON 5 LITERS NASAL CANULA. PT TO REMAIN NPO SHE IS AT HIGH RISK FOR ASPIRATION. LR INITIATED @ 100 CC/HR X 1 LITER-PER DR. PORTILLO. URINE OUTPUT 950 CC THIS SHIFT.
--- NOTE | 2022-11-12 20:17 | NUR ---
ASSUMPTION OF CARE ASSUMED CARE OF PATIENT @ 1915. PATIENT DROWSY ON 0.6MCG/KG/HR. PT ABLE TO ANSWER SOME QUESTIONS CALMLY AND FOLLOWS SIMPLE COMMANDS. PT CONFUSED, BELIEVES THAT SHE IS IN "SOME H*LL HOLE IN [place]" AND THAT THE YEAR IS 2000. MONITOR SHOWING SB, HR 40-50S. SBP 120S. ON 6L OXYMIZER. WET, LOOSE COUGH; IT SEEMS THAT PATIENT IS SWALLOWING SPUTUM DESPITE ASSISTANCE WITH USE OF YANKAUER. LUNG SOUNDS TIGHT, DIMINISHED. BECOMES WHEEZY WITH ANY EXERTION. RONQUILLO TO DD. BED BATH, RONQUILLO CARE, AND ORAL CARE COMPLETED. ATTEMPTING TO WEAN DOWN PRECEDEX AGITATION ALLOWS.
[2022-11-13 04:56] LABS: Hemoglobin 10.5 g/dL (11.5-16.0); Mean Corpuscular HGB 30.9 pg (26.0-34.0); Mean Corpuscular HGB Conc 33.9 g/dL (31.5-36.5); Mean Corpuscular Volume 91 fL (80-100); Mean Platelet Volume 10.2 fL (9.1-12.4); Platelet Count 178 K/mm3 (150-400); RDW Coefficient Variation 12.6 % (11.7-14.2); RDW Standard Deviation 41.4 fL (35.1-46.3); White Blood Cell Count 6.45 K/mm3 (4.00-11.30)
[2022-11-13 05:12] LABS: Bun/Creatinine Ratio 37.5 (12.0-20.0); Calcium, Blood 8.1 mg/dL (8.5-10.1); Creatinine, Blood 0.59 mg/dL (0.40-1.00); Magnesium, Blood 2.3 mg/dL (1.6-2.4); Phosphorus, Blood 3.4 mg/dL (2.5-4.9); Potassium, Blood 3.6 mmol/L (3.5-5.5)
--- NOTE | 2022-11-13 06:09 | NUR ---
SHIFT SUMMARY PATIENT REMAINED CONFUSED OVERNIGHT, BUT LESS AGITATION OVERALL THAN PREVIOUS SHIFTS. PRECEDEX AT 0.5MCG/KG/MIN. PT DID NOT REQUIRE ANY PRN ATIVAN OVERNIGHT. PATIENT IS STILL IMPULSIVE, PULLING OFF OXYGEN TUBING AND ATTEMPTING TO CLIMB OUT OF BED TO "GET MY DOGS." MONITOR SHOWING SB/SR, HR 50-60S. SBP 100-120S. 4-6L NC. FREQUENT COUGH, BUT UNABLE TO VISUALIZE SPUTUM PATIENT SEEMS TO SWALLOW IT. RONQUILLO PATENT, 450CC URINE OUTPUT. NPO. CALL LIGHT WITHIN REACH, HOWEVER PATIENT DOES NOT UTILIZE.
--- NOTE | 2022-11-13 06:50 | NUR ---
UPDATE THIS MORNING, PATIENT MUCH MORE ALERT. ORIENTED TO SELF, PLACE, SITUATION. REMEMBERS COMING TO THE HOSPITAL DUE TO SHORTNESS OF BREATH, BUT UNAWARE OF HOW LONG SHE HAS BEEN HERE. FOLLOWING COMMANDS. PERSISTENTLY ASKING FOR FOOD. CONTINUING TO TURN DOWN PRECEDEX; PATIENT CALM AND COOPERATIVE AT THIS TIME.
--- NOTE | 2022-11-13 07:30 | NUR ---
ASSUMED CARE: RESTING QUIETLY IN BED AT THIS TIME. NSR IN 60S-70S. 6L O2 VIA NC. NO ACUTE NEEDS OR CONCERNS AT THIS TIME. RT AT BEDSIDE.
--- NOTE | 2022-11-13 08:47 | NUR ---
PT AWOKE AND STARTED YELLING FOR "F------ WATER." STAFF CAME TO BEDSIDE ATTEMPTING TO EXPLAIN THAT BEDSIDE SWALLOW WOULD NEED TO OCCUR. STAFF EXPLAINED THAT NURSE WAS IN A DIFFERENT ROOM AND WOULD BE TO HER SHORTLY. PT BEGAN YELLING FURTHER, PULLING AT TELE LEADS AND STATING SHE WOULD GET UP AND GET THE WATER HERSELF. NURSE CAME TO BEDSIDE AND PT CONTINUED YELLING, STATING "I'M NOT GOING TO ASK ANY POLITER. GET ME SOME F------ WATER." NURSE EXPLAINED THAT SHE WILL BE TO BEDSIDE SHORTLY. LEATHER TOOLER CALLED SECURITY FOR A WALK THROUGH. NURSE CAME TO BEDSIDE, DID A BEDSIDE SWALLOW EVAL AND PT WAS ABLE TO TOLERATE WATER AND TOOK A PILL ORALLY WITHOUT S/S ASPIRATION. PT THEN STATED SHE WANTED TO GO BACK TO SLEEP. CALL LIGHT IN REACH AND INSTRUCTED PT TO USE IT IF SHE NEEDED ANYTHING ELSE.
--- NOTE | 2022-11-13 10:02 | NUR ---
DISCUSSED PT'S CASE WITH DR AVERY AND ASKED IF PRECEDEX IS STILL NECESSARY DUE TO PT STILL HAVING PERIODS OF AGITATION EVEN WHEN ON IT. STATED HE WAS GOING TO REVIEW ORDERS AND THAT WE COULD TRY TO KEEP HER OFF MED. PRECEDEX PUT ON SB. PT AWOKE CALLING OUT FOR WATER. WATER AND APPLE JUICE PROVIDED PER REQUEST. 6L O2 VIA HNC AT THIS TIME, SATTING LOW TO MID 90S.
--- NOTE | 2022-11-13 11:53 | NUR ---
DR AVERY CAME TO SEE PT AND ADVISED FOR RONQUILLO REMOVAL AND TO GET PT UP TO CHAIR FOR LUNCH. AMBULATED PT WITH ONE ASSIST UP TO CHAIR, RONQUILLO REMOVED WITHOUT ISSUE. PT VERBALIZED THAT WHEN FRIEND ARRIVES SHE IS PLANNING TO LEAVE. EDUCATED THAT THIS IS WITHIN HER RIGHT TO DO SO IF SHE UNDERSTANDS THE RISKS, INCLUDING THAT DRS ARE NOT READY TO DISCHARGE DUE TO REQUIRING LARGE AMOUNTS OF OXYGEN. PT STATED SHE IS DONE WITH THIS PLACE AND WANTS TO GO HOME.
--- NOTE | 2022-11-13 15:29 | NUR ---
PT CALLED STAFF INTO THE ROOM BECAUSE SHE SAID SHE WAS LEAVING AND READY TO GO. AMA FORM PROVIDED AND SIGNED. IV SITES REMOVED BILATERALLY. PT HAD BEEN OFF PRECEDEX SINCE THIS AM. EDUCATED PT ABOUT RISK OF DISCHARGING DUE TO REQUIRING LARGE AMOUNTS OF OXYGEN. PT'S FRIEND ARRIVED TO TAKE HER HOME. AMBULATORY UPON DISCHARGE. DR MULLEN AND FORK REPAIRER NOTIFIED.
== END 2022-11-13 15:19 | disposition left against medical advice (07) | DRG 208 ==
LOC: ER 17:33 → ICUW 20:40 → ICUE 20:40
PROVIDERS: Emergency Medicine; Internal Medicine; Internal Medicine Critical Care Medicine; Student in an Organized Health Care Education/Training Program; ADMIT Internal Medicine
PROC: 4A133R1 Monitoring of Arterial Saturation, Peripheral, Percutaneous Approach (ICD-10-PCS; principal; 2022-11-09)
PROC: 0T9B70Z Drainage of Bladder with Drainage Device, Via Natural or Artificial Opening (ICD-10-PCS; 2022-11-09)
PROC: 5A1945Z Respiratory Ventilation, 24-96 Consecutive Hours (ICD-10-PCS; 2022-11-09)
PROC: 0BH17EZ Insertion of Endotracheal Airway into Trachea, Via Natural or Artificial Opening (ICD-10-PCS; 2022-11-09)
PROC: 0DH67UZ Insertion of Feeding Device into Stomach, Via Natural or Artificial Opening (ICD-10-PCS; 2022-11-10)
DX: J96.21 Acute and chronic respiratory failure with hypoxia (principal); G92.8 Other toxic encephalopathy; J45.901 Unspecified asthma with (acute) exacerbation; J44.1 Chronic obstructive pulmonary disease with (acute) exacerbation; F15.13 Other stimulant abuse with withdrawal; J82.83 Eosinophilic asthma; J96.22 Acute and chronic respiratory failure with hypercapnia; F13.10 Sedative, hypnotic or anxiolytic abuse, uncomplicated; F41.9 Anxiety disorder, unspecified; R73.9 Hyperglycemia, unspecified; J98.4 Other disorders of lung; F10.10 Alcohol abuse, uncomplicated; B95.3 Streptococcus pneumoniae as the cause of diseases classified elsewhere; B95.61 Methicillin susceptible Staphylococcus aureus infection as the cause of diseases classified elsewhere; B95.4 Other streptococcus as the cause of diseases classified elsewhere; F17.210 Nicotine dependence, cigarettes, uncomplicated; Z20.822 Contact with and (suspected) exposure to COVID-19; Z87.01 Personal history of pneumonia (recurrent); Z86.14 Personal history of Methicillin resistant Staphylococcus aureus infection; Z88.8 Allergy status to other drugs, medicaments and biological substances; Z88.5 Allergy status to narcotic agent; Z91.038 Other insect allergy status; Z79.51 Long term (current) use of inhaled steroids; Z98.890 Other specified postprocedural states
CPT/HCPCS: 0202U; 31500; 36415; 36600; 51702; 71045; 80047; 80048; 80053; 80061; 81001; 82803; 83735; 84100; 84145; 84484; 85014; 85025; 85027; 87070; 87077; 87147; 87186; 87205; 93005; 93010; 94002; 94003; 94640; 94644; 94664; 94760; 94762; 96374-59; 96375-59; 96376-59; 99291-25; 99292; A9270; C1751; J0330; J0696; J1100; J1200; J1650; J2001; J2060; J2704; J2930; J3370; J3475; J7030; J7040; J7050; J7120

== ENCOUNTER 2022-12-18 17:23 | Emergency (ER) | payer OTHER ==
[~2022-12-18] VITALS: Ht 152.4 cm; Wt 72.6 kg
[~2022-12-18 17:23] MED LIST changes: +Ventolin/Proventil INH
[2022-12-18 17:45] LABS: Calcium, Ionized (POC) >2.50 mmol/L (1.10-1.46); Chloride (POC) >140 mmol/L (98-108); Creatinine (POC) 0.6 mg/dL (0.6-1.0); Glucose (ISTAT POC) 171 mg/dL (70-99); Hemoglobin (POC) 5.1 g/dL (12.0-16.0); Potassium (POC) 4.9 mmol/L (3.5-5.5); Sodium (POC) 139 mmol/L (135-148); Total CO2 (POC) 30 mmol/L (21-32)
--- NOTE | 2022-12-18 18:28 | NUR ---
Call back - Pt . Two aunts arrived and PC informed family of pt's passing. Space provided for family to express thoughts and emotions concerning the situation. Jenna(aunt) stated "We were expecting this. She would not stay clean." She expresses regret for not being there, but PC attempted to ease her guilt. 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 Both family members appeared to be grieving appropriately. Family chose [facility] Technician was notified.
== END 2022-12-18 20:50 ==
LOC: ER 17:32
DX: I46.9 Cardiac arrest, cause unspecified (principal); J44.9 Chronic obstructive pulmonary disease, unspecified; F17.200 Nicotine dependence, unspecified, uncomplicated; Z91.030 Bee allergy status; Z88.8 Allergy status to other drugs, medicaments and biological substances; Z88.5 Allergy status to narcotic agent; Z79.899 Other long term (current) drug therapy
CPT/HCPCS: 80047; 85014; 92950; 99285-25; J2310